=== PATIENT | female | born 1950 | race Caucasian/White ===

== ENCOUNTER 2019-07-02 11:20 | Outpatient (RCR) | payer MEDICARE, MEDICAID, SELFPAY ==
[2019-07-02 11:47] LABS: Basophils % 0.3 %; Eosinophils # 0.4 10^3/uL (0.0-0.8); Eosinophils % 5.1 %; Hematocrit 36.3 % (37.0-47.0); Hemoglobin 11.8 g/dL (11.5-15.3); Lymphocytes # 2.1 10^3/uL (0.8-4.8); Lymphocytes % 28.6 %; Mean Corpuscular HGB Conc 32.5 g/dL (30.0-36.0); Mean Corpuscular Hemoglobin 29.8 pg (28.0-34.0); Mean Corpuscular Volume 91.7 fL (81-99); Mean Platelet Volume 10.3 fL (7.4-10.4); Monocytes # 0.4 10^3/uL (0.2-0.9); Monocytes % 5.6 %; Neutrophils # 4.4 10^3/uL (1.8-7.7); Neutrophils % 60.3 %; Nucleated Red Blood Cells % 0 %; Platelet Count 209 10^3/cmm (130-400); Red Blood Count 3.96 10^6/uL (4.1-5.3); Red Cell Distribution Width 12.7 % (12.1-15.1); White Blood Count 7.3 10^3/uL (4.0-10.0)
[2019-07-02 11:56] LABS: Anion Gap 14.8 (5-19); Blood Urea Nitrogen 27 mg/dL (8-23); Calcium 9.8 mg/Dl (8.8-10.2); Carbon Dioxide 28 mmol/L (22-29); Chloride 96 mmol/L (98-107); Glomerular Filtration Rate 55.1 mL/min (90-130); Glucose 98 mg/dL (74-106); Potassium 4.8 mmol/L (3.5-5.1); Sodium 134 mmol/L (136-145)
== END 2019-07-24 23:59 | disposition home or self-care (01) ==
LOC: LAB 11:20
PROVIDERS: Family Provider Family Medicine; PCP Family Medicine; Visit Provider Internal Medicine
DX: D64.9 Anemia, unspecified (principal); I31.1 Chronic constrictive pericarditis; I10 Essential (primary) hypertension
CPT/HCPCS: 80048; 85025

== ENCOUNTER 2021-01-03 07:26 | Outpatient (CLI) | payer MEDICARE, MEDICAID, SELFPAY ==
[2021-01-03 08:23] LABS: Anion Gap 14.8 (5-19); Blood Urea Nitrogen 23 mg/dL (8-23); Calcium 9.4 mg/dL (8.5-10.5); Carbon Dioxide 28 mmol/L (22-29); Chloride 93 mmol/L (98-107); Glomerular Filtration Rate 49.1 mL/min (90-130); Glucose 99 mg/dL (65-115); Osmolality Calculated 276 mOsm/kg (285-295); Potassium 4.8 mmol/L (3.5-5.1); Sodium 131 mmol/L (136-145)
== END 2021-01-03 07:27 | disposition home or self-care (01) ==
LOC: LAB 07:28
PROVIDERS: PCP Family Medicine; Visit Provider Nurse Practitioner Family
DX: I10 Essential (primary) hypertension (principal)
CPT/HCPCS: 80048

== ENCOUNTER 2021-11-08 20:01 | Emergency (ER) | payer MEDICARE, MEDICAID, SELFPAY ==
[2021-11-08] VITALS (10 sets, daily range): BP systolic 120–167; BP diastolic 66–95; PULSE 68–90; RESP 15–23; TEMP 36.9; O2SAT 89–99
--- NOTE | 2021-11-08 20:16 | W.ED.CHESTPA ---
Documented by User: Emigdio Back 11/08/21 23:22 HPI - Chest Pain General: Chief Complaint: Chest Pain Stated Complaint: CP Time Seen by Provider: 11/08/21 20:02 History of Present Illness: 71-year-old female presents from a long term chief complaint of reported chest pain prior to arrival patient apparently is nonverbal however she made mention to staff that she was having some chest discomfort. Patient has no known history of any underlying cardiac issues she presents to the emergency department via EMS for further assessment and management Associated symptoms: Deny abdominal pain, dyspnea, fever(s), nausea, palpitations or vomiting Review of Systems General: Reports: 10 or more systems reviewed and unremarkable except in HPI and below Const: Denies: fever(s), chills, fatigue or malaise Eyes: Denies: change in vision or blurry vision Card: Reports: chest pain; Denies: palpitations Resp: Denies: dyspnea or productive cough GI: Denies: abdominal pain, nausea or vomiting : Denies: flank pain Musc: Denies: extremity pain or extremity swelling Skin/Breast: Denies: rash or pruritus Neuro: Denies: headache(s) Psych: Denies: anxiety or depression Levon/Lymph: Denies: easy bleeding All/Imm: Denies: urticaria, throat swelling or facial swelling Physical Exam Const: COMMON NORMALS: no acute distress and healthy appearing; negative for patient oriented x3 (Alert oriented x2 no focal neurodeficits appreciated appears to be at basel) HENMT: COMMON NORMALS: normocephalic and atraumatic HEAD & SCALP: normocephalic and atraumatic Eye: COMMON NORMALS: Equal, round and reactive pupils present and EOMs intact bilaterally PUPIL: Yes Equal, round and reactive pupils present Neck/C-Spine: COMMON NORMALS: full ROM, supple and no JVD Lymph: LYMPHATIC: no lymphadenopathy noted Chest: COMMONS NORMALS: normal inspection of the chest and normal palpation of entire chest wall Resp: COMMON NORMALS: normal respiratory effort, No retractions and clear to auscultation bilaterally EFFORT & INSPECTION: Yes able to speak in complete sentences and Yes symmetric chest movement AUSCULTATION: clear to auscultation bilaterally Cardio: COMMON NORMALS: no JVD, regular rate and regular rhythm RATE: regular rate RHYTHM: regular rhythm GI: COMMON NORMALS: Normal to inspection, nondistended, normoactive bowel sounds present, Soft to palpation and non-tender INSPECTION: Yes normal to inspection PALPATION: Yes Soft to palpation : COMMON NORMALS: Yes no CVA tenderness BLADDER/KIDNEY EXAM: Yes no CVA tenderness Back/Pelvis: COMMON NORMALS: no CVA tenderness Extremity: COMMON NORMALS: normal to inspection and full ROM Neuro: COMMON NORMALS: CN's II-XII intact bilaterally, moves all extremities and no focal motor deficits; negative for patient oriented x3 (Alert oriented x2 no focal neurodeficits appreciated appears to be at basel) Psych: COMMON NORMALS: mental status grossly normal, Normal thought process present, cooperative and normal affect THOUGHT PROCESS: Normal thought process present Skin: COMMON NORMALS: no rashes or lesions noted GENERAL SKIN EXAM: no rashes or lesions noted Course Vital Signs: Vital signs: Vital Signs Temperature 98.5 F 11/08/21 20:02 Pulse Rate 68 11/08/21 23:43 Respiratory Rate 16 11/08/21 23:43 Blood Pressure 154/89 11/08/21 23:43 Pulse Oximetry 99 11/08/21 23:43 MDM - Chest Pain Medical Decision Making Due to reported history prior to arrival basic lab work imaging will be obtained we will continue to follow patient appears asymptomatic at this time reported no current complaints. Lab Data : 11/08/21 21:10 11/08/21 21:10 Radiology Impressions Chest X-Ray 11/08/21 20:20 IMPRESSION: 1. Bibasilar atelectasis. 2. Cardiomegaly. Laboratory Results WBC 7.1 10^3/uL (4.0-10.0) 11/08/21 21:10 RBC 3.71 10^6/uL (4.1-5.3) L 11/08/21 21:10 Hgb 10.8 g/dL (11.5-15.3) L 11/08/21 21:10 Hct 32.3 % (37.0-47.0) L 11/08/21 21:10 MCV 87.1 fl (81-99) 11/08/21 21:10 MCH 29.1 pg (28.0-34.0) 11/08/21 21:10 MCHC 33.4 g/dL (30.0-36.0) 11/08/21 21:10 RDW 13.3 % (12.1-15.1) 11/08/21 21:10 Plt Count 172 10^3/cmm (130-400) 11/08/21 21:10 MPV 10.3 fL (7.4-10.4) 11/08/21 21:10 Neut % (Auto) 62.9 % 11/08/21 21:10 Lymph % (Auto) 27.3 % 11/08/21 21:10 Storey % (Auto) 7.3 % 11/08/21 21:10 Eos % (Auto) 2.0 % 11/08/21 21:10 Baso % (Auto) 0.4 % 11/08/21 21:10 Neut # (Auto) 4.46 10^3/uL (1.8-7.7) 11/08/21 21:10 Lymph # (Auto) 1.9 10^3/uL (0.8-4.8) 11/08/21 21:10 [place] # (Auto) 0.5 10^3/uL (0.2-0.9) 11/08/21 21:10 Eos # (Auto) 0.1 10^3/uL (0.0-0.8) 11/08/21 21:10 Baso # (Auto) 0.0 10^3/uL (0.0-0.1) 11/08/21 21:10 Nucleated RBC % (auto) 0 % 11/08/21 21:10 Nucleated RBCs # 0.0 /100WBC 11/08/21 21:10 Sodium 129 mmol/L (136-145) L 11/08/21 21:10 Potassium 4.2 mmol/L (3.5-5.1) 11/08/21 21:10 Chloride 96 mmol/L (98-107) L 11/08/21 21:10 Carbon Dioxide 25 mmol/L (22-29) 11/08/21 21:10 Anion Gap 12.2 (5-19) 11/08/21 21:10 BUN 28 mg/dL (8-23) H 11/08/21 21:10 Creatinine 1.0 mg/dL (0.5-0.9) H 11/08/21 21:10 GFR Calculation Not Reportable 11/08/21 21:10 Glucose 116 mg/dL (65-115) H 11/08/21 21:10 Calculated Osmolality 274 mOsm/kg (285-295) L 11/08/21 21:10 Calcium 8.2 mg/dL (8.5-10.5) L 11/08/21 21:10 Total Bilirubin 0.2 mg/dL (0.15-1.2) 11/08/21 21:10 AST 9 U/L (0-32) 11/08/21 21:10 ALT 10 U/L (0-33) 11/08/21 21:10 Alkaline Phosphatase 85 IU/L (35-105) 11/08/21 21:10 Troponin T Baseline 12 ng/L (0-10) H 11/08/21 21:10 Troponin T 120 Minute 12.25 ng/L (0-10) H 11/08/21 22:50 Delta Troponin T 0.25 ABS# (0-10) 11/08/21 22:50 NT-Pro-B Natriuret Pep 96 pg/mL (0-125) 11/08/21 21:10 Total Protein 6.1 g/dL (6.6-8.7) L 11/08/21 21:10 Albumin 3.6 g/dL (3.5-5.2) 11/08/21 21:10 Globulin 2.5 g/dL (1.3-4.6) 11/08/21 21:10 Discharge Plan Discharge Patient Disposition: Home Clinical Impression: Chest pain, Atypical chest pain Condition: Stable Discharge Orders: Discharge ED (Routine); Ordered 11/08/21 Ordered By: Emigdio Back Referrals: Emanuel Shaffer MD [Primary Care Provider] - 4-7 days Discharge Diet: Advance as tolerated Discharge Activity: Resume usual activity Activity Restrictions/Additional Instructions: Please follow-up with your primary care doctor in 3 to 5 days, please return the interim if any of your symptoms persist or worsen Coding Level of Care Code ED Anesthesiology Physician Assistant for Chg Fwd Exam Comprehensive
--- NOTE | 2021-11-08 20:20 | XRR_ITS ---
PROCEDURE INFORMATION: Exam: XR Chest Exam date and time: 11/08/2021 8:46 PM Age: 71 years old Clinical indication: Chest wall pain; Additional info: Chest pain TECHNIQUE: Imaging protocol: XR of the chest. Views: 1 view. COMPARISON: CR Chest 1 [place] [id number] 07/30/2018 8:45 PM FINDINGS: Lungs: Bibasilar atelectasis. Pleural spaces: Unremarkable. No pleural effusion. No pneumothorax. Heart/Mediastinum: Cardiomegaly. Bones/joints: Unremarkable. XR/XR chest 1V portable [id number] IMPRESSION: 1. Bibasilar atelectasis. 2. Cardiomegaly.
--- NOTE | 2021-11-08 20:20 | ECG_ITS ---
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 Measurements Intervals [place] Rate: 99 P: 74 MN: 172 QRS: 105 QRSD: 89 T: 54 QT: 322 QTc: 415 Interpretive Statements SINUS RHYTHM RIGHT AXIS DEVIATION [QRS AXIS > 100] LOW QRS VOLTAGE IN PRECORDIAL LEADS [QRS DEFLECTION < 1.0 mV IN CHEST LEADS] Compared to ECG 07/31/2018 00:01:24 Right-axis deviation now present Low QRS voltage now present Electronically Signed On 11-09-2021 7:49:51 CDT by Tammy Rojas M.D. [id number]
[2021-11-08] MEDS: sodium chloride 0.9% 500 ML 999 ML IV (20:35)
[2021-11-08] MEDS: nitroglycerin 0.4 mg sublingual Tablet SUBLINGUAL (20:35)
[2021-11-08 21:18] LABS: Basophils % 0.4 %; Eosinophils # 0.1 10^3/uL (0.0-0.8); Hematocrit 32.3 % (37.0-47.0); Hemoglobin 10.8 g/dL (11.5-15.3); Lymphocytes # 1.9 10^3/uL (0.8-4.8); Lymphocytes % 27.3 %; Mean Corpuscular HGB Conc 33.4 g/dL (30.0-36.0); Mean Corpuscular Hemoglobin 29.1 pg (28.0-34.0); Mean Corpuscular Volume 87.1 fl (81-99); Mean Platelet Volume 10.3 fL (7.4-10.4); Monocytes # 0.5 10^3/uL (0.2-0.9); Monocytes % 7.3 %; Neutrophils # 4.46 10^3/uL (1.8-7.7); Neutrophils % 62.9 %; Nucleated Red Blood Cells % 0 %; Platelet Count 172 10^3/cmm (130-400); Red Blood Count 3.71 10^6/uL (4.1-5.3); Red Cell Distribution Width 13.3 % (12.1-15.1); White Blood Count 7.1 10^3/uL (4.0-10.0)
[2021-11-08 21:44] LABS: Alanine Aminotransferase 10 U/L (0-33); Albumin Level 3.6 g/dL (3.5-5.2); Alkaline Phosphatase 85 IU/L (35-105); Aspartate Amino Transferase 9 U/L (0-32); Blood Urea Nitrogen 28 mg/dL (8-23); Calcium 8.2 mg/dL (8.5-10.5); Carbon Dioxide 25 mmol/L (22-29); Chloride 96 mmol/L (98-107); Globulin 2.5 g/dL (1.3-4.6); Glucose 116 mg/dL (65-115); Osmolality Calculated 274 mOsm/kg (285-295); Sodium 129 mmol/L (136-145); Total Bilirubin 0.2 mg/dL (0.15-1.2); Total Protein 6.1 g/dL (6.6-8.7)
[2021-11-08 21:45] LABS: Anion Gap 12.2 (5-19); Potassium 4.2 mmol/L (3.5-5.1)
[2021-11-08 21:48] LABS: NT Pro B Type Natriuretic Pept 96 pg/mL (0-125)
[2021-11-08 22:01] LABS: Troponin(5th) Baseline 12 ng/L (0-10)
[2021-11-08 23:18] LABS: Troponin 5 2HR 12.25 ng/L (0-10)
[2021-11-08 23:22] LABS: Troponin 5 2HR Delta 0.25 ABS# (0-10)
== END 2021-11-08 23:36 | disposition home or self-care (01) ==
PROVIDERS: Emergency Provider Emergency Medicine; PCP Family Medicine
DX: R07.89 Other chest pain (principal)
CPT/HCPCS: 71045; 80053; 83880; 84484; 85025; 93005; 99285; J7040

== ENCOUNTER 2022-06-07 08:20 | Emergency (ER) | payer MEDICARE, MEDICAID, SELFPAY ==
[2022-06-07 08:25] VITALS: BP 190/77; PULSE 95; RESP 18; O2SAT 97
--- NOTE | 2022-06-07 08:31 | W.ED.ABDPA2 ---
HPI - Abdominal Pain General: Chief Complaint: Abdominal Pain Stated Complaint: RUQ pain Time Seen by Provider: 06/07/22 08:24 Source: EMS Mode of arrival: EMS Limitations: other (Dementia, schizophrenia. Patient unable give any history) History of Present Illness: See nursing assessment. After speaking with EMS, patient reportedly had right upper quadrant abdominal pain after exam by the nurse practitioner this morning. EMS was called to transfer patient to the hospital for evaluation of abdominal pain. EMS stated they could not elicit any abdominal pain for the patient. Patient is unable to give any history due to her advanced dementia and schizophrenia. Patient appears in no distress. Patient has a past medical history of dementia, schizophrenia and hypertension. Patient does not complain of any other problems at this time. Associated Symptoms: Reports other (Patient not complaining of abdominal pain now); Denies chills, fever(s), nausea and vomiting Review of Systems Const: Denies: fever(s) or chills Eyes: Denies: change in vision ENMT: Denies: throat pain Card: Denies: chest pain or palpitations Resp: Denies: dyspnea or wheezing GI: Reports: other (Patient not complaining of abdominal pain now); Denies: abdominal pain, nausea or vomiting : Denies: flank pain Musc: Denies: neck pain or back pain Skin/Breast: Denies: rash or pruritus Neuro: Denies: headache(s) or numbness in extremities Psych: Denies: anxiety Levon/Lymph: Denies: enlarged lymph nodes PFS ED Supplemental [facility] Information: Past medical history of schizophrenia, dementia, essential hypertension Physical Exam Const: COMMON NORMALS: no acute distress, alert and well nourished GENERAL APPEARANCE: cooperative OTHER: Morbidly obese HENMT: COMMON NORMALS: normocephalic and atraumatic HEAD & SCALP: normocephalic and atraumatic FACE & SINUS: normal facial exam Eye: COMMON NORMALS: EOMs intact bilaterally Neck/C-Spine: COMMON NORMALS: full ROM, no lymphadenopathy, supple and no meningeal signs GENERAL: Yes normal visual inspection Lymph: LYMPHATIC: no lymphadenopathy noted Chest: COMMONS NORMALS: normal inspection of the chest and normal palpation of entire chest wall CHEST: No Ecchymosis present and No rash Resp: COMMON NORMALS: normal respiratory effort, No retractions and clear to auscultation bilaterally EFFORT & INSPECTION: No respiratory distress AUSCULTATION: clear to auscultation bilaterally Cardio: COMMON NORMALS: regular rate, regular rhythm and Peripheral pulses 2+ throughout JUGULAR VENOUS DISTENTION: no JVD RATE: regular rate RHYTHM: regular rhythm PERIPHERAL PULSES: Peripheral pulses 2+ throughout GI: COMMON NORMALS: Normal to inspection, nondistended, normoactive bowel sounds present and non-tender OTHER: No guarding or rebound. No pain even with deep palpation. Negative Epps sign. No pain over McBurney's point. : COMMON NORMALS: Yes no CVA tenderness BLADDER/KIDNEY EXAM: Yes no CVA tenderness Back/Pelvis: COMMON NORMALS: no CVA tenderness Extremity: COMMON NORMALS: normal to inspection, full ROM and capillary refill normal Neuro: COMMON NORMALS: CN's II-XII intact bilaterally, no focal motor deficits and no sensory deficits noted SENSORIUM/ORIENTATION: Yes alert MENINGEAL SIGNS: Yes no meningeal signs OTHER: Patient has unintelligible speech, but speech is clear.. Patient awake alert and appears no distress. Psych: COMMON NORMALS: cooperative and normal affect Skin: COMMON NORMALS: no rashes or lesions noted and no wounds GENERAL SKIN EXAM: no rashes or lesions noted Course Vital Signs: Vital signs: Vital Signs Pulse Rate 95 06/07/22 08:25 Respiratory Rate 18 06/07/22 08:25 Blood Pressure 190/77 06/07/22 08:25 Pulse Oximetry 97 06/07/22 08:25 Oxygen Delivery Me thod 06/07/22 08:25 MDM - Abdominal Pain Medical Decision Making Abdominal pain by history. Normal physical exam except for advanced dementia and schizophrenia history mild hyponatremia likely due to home meds Lab Data 06/07/22 08:55 06/07/22 08:55 Labs/Radiology: Radiology Impressions Abdomen X-Ray 06/07/22 08:37 IMPRESSION: 1. Mild abdominal colonic constipation. 2. Interval cholecystectomy. Laboratory Results WBC 7.8 10^3/uL (4.0-10.0) 06/07/22 08:55 RBC 4.26 10^6/uL (4.1-5.3) 06/07/22 08:55 Hgb 12.6 g/dL (11.5-15.3) 06/07/22 08:55 Hct 37.9 % (37.0-47.0) 06/07/22 08:55 MCV 89.0 fl (81-99) 06/07/22 08:55 MCH 29.6 pg (28.0-34.0) 06/07/22 08:55 MCHC 33.2 g/dL (30.0-36.0) 06/07/22 08:55 RDW 13.0 % (12.1-15.1) 06/07/22 08:55 Plt Count 221 10^3/cmm (130-400) 06/07/22 08:55 MPV 9.6 fL (7.4-10.4) 06/07/22 08:55 Neut % (Auto) 72.3 % 06/07/22 08:55 Lymph % (Auto) 19.8 % 06/07/22 08:55 [place] % (Auto) 6.3 % 06/07/22 08:55 Eos % (Auto) 0.9 % 06/07/22 08:55 Baso % (Auto) 0.4 % 06/07/22 08:55 Neut # (Auto) 5.63 10^3/uL (1.8-7.7) 06/07/22 08:55 Lymph # (Auto) 1.5 10^3/uL (0.8-4.8) 06/07/22 08:55 [place] # (Auto) 0.5 10^3/uL (0.2-0.9) 06/07/22 08:55 Eos # (Auto) 0.1 10^3/uL (0.0-0.8) 06/07/22 08:55 Baso # (Auto) 0.0 10^3/uL (0.0-0.1) 06/07/22 08:55 Nucleated RBC % (auto) 0 % 06/07/22 08:55 Nucleated RBCs # 0.0 /100WBC 06/07/22 08:55 Sodium 126 mmol/L (136-145) L 06/07/22 08:55 Potassium 4.3 mmol/L (3.5-5.1) 06/07/22 08:55 Chloride 89 mmol/L (98-107) L 06/07/22 08:55 Carbon Dioxide 29 mmol/L (22-29) 06/07/22 08:55 Anion Gap 12.3 (5-19) 06/07/22 08:55 BUN 16 mg/dL (8-23) 06/07/22 08:55 Creatinine 1.0 mg/dL (0.5-0.9) H 06/07/22 08:55 GFR Calculation Not Reportable 06/07/22 08:55 Glucose 81 mg/dL (65-115) 06/07/22 08:55 Calculated Osmolality 262 mOsm/kg (285-295) L 06/07/22 08:55 Calcium 9.5 mg/dL (8.5-10.5) 06/07/22 08:55 Total Bilirubin 0.3 mg/dL (0.15-1.2) 06/07/22 08:55 AST 11 U/L (0-32) 06/07/22 08:55 ALT 11 U/L (0-33) 06/07/22 08:55 Alkaline Phosphatase 98 U/L (35-105) 06/07/22 08:55 Total Protein 6.8 g/dL (6.6-8.7) 06/07/22 08:55 Albumin 3.9 g/dL (3.5-5.2) 06/07/22 08:55 Globulin 2.9 g/dL (1.3-4.6) 06/07/22 08:55 Lipase 66 U/L (13-60) H 06/07/22 08:55 Urine Color Yellow (Yellow) 06/07/22 08:39 Urine Appearance Cloudy (CLEAR) A 06/07/22 08:39 Urine pH 7 (5-7) 06/07/22 08:39 Ur Specific [place] 1.005 (1.005-1.030) 06/07/22 08:39 Urine Protein 1+ (Negative) H 06/07/22 08:39 Urine Glucose (UA) Norm (Normal) 06/07/22 08:39 Urine Ketones Negative (Negative) 06/07/22 08:39 Urine Blood 2+ (Negative) H 06/07/22 08:39 Urine Nitrate Positive (Negative) H 06/07/22 08:39 Urine Bilirubin Neg (Negative) 06/07/22 08:39 Urine Urobilinogen Norm mg/dL (Negative) 06/07/22 08:39 Ur Leukocyte Esterase 2+ (Negative) H 06/07/22 08:39 Urine RBC 0-4 /hpf (0-2) H 06/07/22 08:39 Urine WBC Too numerous to cnt /hpf (0-5) H 06/07/22 08:39 Ur Squamous Epith Cells 0-4 /hpf (0-5) H 06/07/22 08:39 Amorphous Sediment Not Reportable 06/07/22 08:39 Urine Bacteria 3+ /hpf (NONE) H 06/07/22 08:39 Imaging Data KUB: My impression: Moderate stool throughout the colon consistent with constipation but no obstruction or free air. Discharge Plan Discharge Patient Disposition: Home Clinical Impression: Hyponatremia, Essential hypertension Urinary tract infection Qualifiers: Urinary tract infection type: site unspecified Hematuria presence: without hematuria Qualified Code(s): N39.0 - Urinary tract infection, site not specified Condition: Stable Prescriptions: New Bactrim DS 800-160 mg tablet 1 tab PO BID 7 Days Qty: 14 0RF Discharge Orders: Discharge ED (Routine); Ordered 06/07/22 Ordered By: Travis Belcher Referrals: Emanuel Shaffer MD [Primary Care Provider] - Discharge Diet: Regular Discharge Activity: Resume usual activity Patient Instructions: Urinary Tract Infection in Women (DC), Hyponatremia (ED), Opioid Safety, Pain Management Activity Restrictions/Additional Instructions: Drink plenty fluids. Start Bactrim antibiotic and approximately 16 hours Coding Level of Care Code ED Security Investigator for Chg Fwd History Comprehensive Exam Comprehensive Medical Decision Making Moderate Complexity
--- NOTE | 2022-06-07 08:37 | XRR_ITS ---
PROCEDURE INFORMATION: Exam: XR Abdomen Exam date and time: 06/07/2022 8:42 AM Age: 71 years old Clinical indication: Abdominal pain; Localized; Right upper quadrant (ruq) TECHNIQUE: Imaging protocol: Radiologic exam of the abdomen. Views: Frontal supine view of the abdomen. 1 View. COMPARISON: MR MRCP [id number] 07/31/2018 2:43 AM FINDINGS: Gastrointestinal tract: There is increased stool noted in the transverse colon. No evidence of mechanical bowel obstruction. Low attenuation residual bowel contrast is present in the rectum. Organs: The gallbladder is likely surgically absent, with metallic clips overlying the gallbladder fossa. Bones/joints: Bilateral lower lumbar facet primary osteoarthritis. Lower lumbar spine degenerative disc disease. XR/XR abdomen 1V* [id number] IMPRESSION: 1. Mild abdominal colonic constipation. 2. Interval cholecystectomy.
[2022-06-07] MEDS: hyDRALAzine 20 mg/mL INJ 1 mL 5 MG IVP (08:59)
[2022-06-07 09:05] LABS: Add Urine Culture? Yes; Bacteria Urine 3+ /hpf; Bilirubin Urine Neg (Negative); Blood Urine 2+ (Negative); Glucose Urine UA Norm (Normal); Ketones Urine Negative (Negative); Leukocyte Esterase Urine 2+ (Negative); Nitrate Urine Positive (Negative); Protein Urine 1+ (Negative); RBC Urine 0-4 /hpf (0-2); Specific Gravity, Urine 1.005 (1.005-1.030); Squamous Epithelial Cell Urine 0-4 /hpf (0-5); Urine Appearance Cloudy (CLEAR); Urine Color Yellow (Yellow); Urobilinogen Urine Norm (Negative); WBC Urine TOO NUMEROUS TO CNT /hpf (0-5); pH Urine 7 (5-7)
[2022-06-07 09:08] LABS: Basophils % 0.4 %; Eosinophils # 0.1 10^3/uL (0.0-0.8); Eosinophils % 0.9 %; Hematocrit 37.9 % (37.0-47.0); Hemoglobin 12.6 g/dL (11.5-15.3); Lymphocytes # 1.5 10^3/uL (0.8-4.8); Lymphocytes % 19.8 %; Mean Corpuscular HGB Conc 33.2 g/dL (30.0-36.0); Mean Corpuscular Hemoglobin 29.6 pg (28.0-34.0); Mean Platelet Volume 9.6 fL (7.4-10.4); Monocytes # 0.5 10^3/uL (0.2-0.9); Monocytes % 6.3 %; Neutrophils # 5.63 10^3/uL (1.8-7.7); Neutrophils % 72.3 %; Nucleated Red Blood Cells % 0 %; Platelet Count 221 10^3/cmm (130-400); Red Blood Count 4.26 10^6/uL (4.1-5.3); White Blood Count 7.8 10^3/uL (4.0-10.0)
[2022-06-07 09:30] LABS: Alanine Aminotransferase 11 U/L (0-33); Albumin Level 3.9 g/dL (3.5-5.2); Alkaline Phosphatase 98 U/L (35-105); Aspartate Amino Transferase 11 U/L (0-32); Blood Urea Nitrogen 16 mg/dL (8-23); Calcium 9.5 mg/dL (8.5-10.5); Carbon Dioxide 29 mmol/L (22-29); Chloride 89 mmol/L (98-107); Globulin 2.9 g/dL (1.3-4.6); Glucose 81 mg/dL (65-115); Lipase 66 U/L (13-60); Osmolality Calculated 262 mOsm/kg (285-295); Sodium 126 mmol/L (136-145); Total Bilirubin 0.3 mg/dL (0.15-1.2); Total Protein 6.8 g/dL (6.6-8.7)
[2022-06-07 09:31] LABS: Anion Gap 12.3 (5-19); Potassium 4.3 mmol/L (3.5-5.1)
[2022-06-07] MEDS: cefTRIAXone 1,000 MG in sodium chloride 0.9% (plus) 50 ML 100 MG IV (09:33)
== END 2022-06-07 10:45 | disposition home or self-care (01) ==
PROVIDERS: Emergency Provider Family Medicine; PCP Family Medicine
DX: N39.0 Urinary tract infection, site not specified (principal); I10 Essential (primary) hypertension; E87.1 Hypo-osmolality and hyponatremia
CPT/HCPCS: 74018; 80053; 81001; 83690; 85025; 87086; 96374; 96375; 99284; J0360; J0696

== ENCOUNTER 2023-10-26 15:25 | Inpatient (IN) | payer MEDICARE, MEDICAID, SELFPAY ==
[2023-10-26] VITALS (20 sets, daily range): BP systolic 97–143; BP diastolic 42–92; PULSE 60–102; RESP 15–79; TEMP 33.1–34.3; O2SAT 71–100
--- NOTE | 2023-10-26 15:29 | XRR_ITS ---
PROCEDURE INFORMATION: Exam: XR Chest Exam date and time: 10/26/2023 3:34 PM Age: 73 years old Clinical indication: Cough and dyspnea; Additional info: Dyspnea/cough TECHNIQUE: Imaging protocol: Radiologic exam of the chest. Views: 1 view. COMPARISON: CR XR chest 1V portable [id number] 11/08/2021 8:46 PM FINDINGS: Lungs: Shallow inspiration. Mild crowding and atelectasis in the right lung base. Consolidation in the left lung base along with soft tissue attenuation. Pleural spaces: Possible small pleural effusions. No pneumothorax. Heart/Mediastinum: Unremarkable. No cardiomegaly. Diaphragm: Stable elevation of the right diaphragm. Bones/joints: Unremarkable. XR/XR chest 1V portable [id number] IMPRESSION: 1. Consolidation in the left lung base may in part represent soft tissue attenuation. Pneumonia or aspiration is not excluded.
--- NOTE | 2023-10-26 15:29 | CTR_ITS ---
PROCEDURE INFORMATION: Exam: CT Head Without Contrast Exam date and time: 10/26/2023 3:45 PM Age: 73 years old Clinical indication: Altered mental status/memory loss; Additional info: AMS TECHNIQUE: Imaging protocol: Computed tomography of the head without contrast. Radiation optimization: All CT scans at this facility use at least one of these dose optimization techniques: automated exposure control; mA and/or kV adjustment per patient size (includes targeted exams where dose is matched to clinical indication); or iterative reconstruction. COMPARISON: CT head wo con* [id number] 06/25/2018 10:08 PM RADIATION DOSE METRICS: Total DLP (mGy-cm): 948.13 FINDINGS: Brain: Mild cortical volume loss. Mild hypodensities in supratentorial periventricular and subcortical white matter, consistent with microangiopathy. No intracranial hemorrhage. Cerebral ventricles: No ventriculomegaly. Paranasal sinuses: Air-fluid level in the right maxillary sinus. Mucosal thickening in the maxillary sinuses. Mastoid air cells: Left mastoid effusion the right mastoid is clear. Bones: Unremarkable. No acute fracture. Soft tissues: Unremarkable. Vasculature: No hyperdense artery. CT/CT head wo con* [id number] IMPRESSION: 1. No acute intracranial abnormality. 2. Maxillary sinusitis.
--- NOTE | 2023-10-26 15:57 | ECG_ITS ---
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 Measurements Intervals [place] Rate: 60 P: 78 GA: 225 QRS: 95 QRSD: 123 T: 13 QT: 397 QTc: 397 Interpretive Statements SINUS RHYTHM WITH FIRST DEGREE AV BLOCK BORDERLINE RIGHT AXIS DEVIATION [QRS AXIS > 90] MODERATE INTRAVENTRICULAR CONDUCTION DELAY [105+ ms QRS DURATION, 80+ ms Q/S IN V1/V2, NO Q AND 60+ ms R IN I/aVL/V5/V6] Non specific ST T wave changes Compared to prior echocardiogram 11/08/2021 20:06:54 First degree AV block now present Intraventricular conduction delay now present ST (T wave) deviation now present Myocardial infarct finding now present Electronically Signed On 10-27-2023 12:12:47 CDT by Philippe Hernandez M.D. [id number]
--- NOTE | 2023-10-26 15:59 | ED_ITS ---
HPI - Altered Mental Status 2 General: Chief Complaint: Altered Mental Status Stated Complaint: AMS Time Seen by Provider: 10/26/23 15:26 Source: family and other Mode of arrival: EMS History of Present Illness: 73-year-old female presents emergency ro om via EMS from the [facility]. According to nursing report vomiting called to she is usually nonverbal but is able to ambulate some. She has been generally deteriorating last couple of months and this morning when she got up she was not able to walk at all and did not attempt to eat. This is unusual for her. She has been in the [facility] since 2019. No known complaints of chest pain no reported fever. She has a little bit tachypneic on arrival he is a family of the patient can give us any usable history. complaint: altered mental status and confusion Review of Systems 2 General: Reports: ROS unobtainable due to mental status PFSH ED 2 PFSH: Medical History (Updated 10/26/23 @ 18:01 by Rhett Davalos DO) Dementia Physical Exam 2 Const: ORIENTATION/CONSCIOUSNESS: Yes awake HENMT: COMMON NORMALS: normocephalic, atraumatic and hearing grossly normal bilaterally HEAD & SCALP: normocephalic and atraumatic Resp: EFFORT & INSPECTION: Yes tachypneic AUSCULTATION: rhonchi and wheezes Cardio: COMMON NORMALS: regular rate, regular rhythm and No murmurs present (Cardio) RATE: regular rate RHYTHM: regular rhythm GI: COMMON NORMALS: Soft to palpation and No hepatosplenomegaly present A USCULTATION: Yes normoactive bowel sounds PALPATION: Yes Soft to palpation, No Tenderness to palpation present (GI), No Guarding due to palpation present (GI) and Yes No hepatosplenomegaly present Extremity: COMMON NORMALS: normal to inspection, capillary refill normal, no clubbing, cyanosis or edema, no calf tenderness and no pedal edema Skin: COMMON NORMALS: no rashes or lesions noted GENERAL SKIN EXAM: no rashes or lesions noted Course 2 Vital Signs: Vital signs: Vital Signs Pulse Rate 68 10/26/23 17:34 Respiratory Rate 20 H 10/26/23 17:34 Blood Pressure 109/91 10/26/23 16:04 Pulse Oximetry 96 10/26/23 17:34 Oxygen Delivery Me thod Nasal Cannula 10/26/23 17:34 Oxygen Flow Rate 2 10/26/23 17:34 MDM - Altered Mental Status Medical Decision Making Altered mental status with a new pneumonia new oxygen requirement as well. Additionally acute renal failure with hyperkalemia of 7.7 she has been given all the usual interventions for the hyperkalemia with the exception of Kayexalate he did not feel that it is appropriate for her to try to ingest anything at this point and she is still active enough a Kayexalate enema is not an option. Urine is still pending. She is also mildly hyponatremic. Discussed with the hospitalist orders written nephrology consulted Medical Records I reviewed the patient's medical records. Lab Data I reviewed the patient's lab results. 10/26/23 16:03 10/26/23 16:03 Radiology Impressions Chest X-Ray 10/26/23 15:29 IMPRESSION: 1. Consolidation in the left lung base may in part represent soft tissue attenuation. Pneumonia or aspiration is not excluded. Head CT 10/26/23 15:29 IMPRESSION: 1. No acute intracranial abnormality. 2. Maxillary sinusitis. Laboratory Results WBC 6.35 10^3/uL (3.29-11.43) 10/26/23 16:03 RBC 3.78 10^6/uL (3.85-5.65) L 10/26/23 16:03 Hgb 10.40 g/dL (11.27-16.99) L 10/26/23 16:03 Hct 32.8 % (36-47) L 10/26/23 16:03 MCV 86.8 fl (85-98) 10/26/23 16:03 MCH 27.5 pg (27-33) 10/26/23 16:03 MCHC 31.7 g/dL (30-55) 10/26/23 16:03 RDW 18.5 % (12.1-15.1) H 10/26/23 16:03 Plt Count 162 10^3/cmm (157-399) 10/26/23 16:03 MPV 9.1 fL (7.4-10.4) 10/26/23 16:03 Neut % (Auto) 84.9 % 10/26/23 16:03 Lymph % (Auto) 8.3 % 10/26/23 16:03 [place] % (Auto) 6.1 % 10/26/23 16:03 Eos % (Auto) 0.3 % 10/26/23 16:03 Baso % (Auto) 0.2 % 10/26/23 16:03 Neut # (Auto) 5.39 10^3/uL (1.8-7.7) 10/26/23 16:03 Lymph # (Auto) 0.5 10^3/uL (0.8-4.8) L 10/26/23 16:03 [place] # (Auto) 0.4 10^3/uL (0.2-0.9) 10/26/23 16:03 Eos # (Auto) 0.0 10^3/uL (0.0-0.8) 10/26/23 16:03 Baso # (Auto) 0.0 10^3/uL (0.0-0.1) 10/26/23 16:03 Nucleated RBC % (auto) 0 % 10/26/23 16:03 Nucleated RBCs # 0.0 /100WBC 10/26/23 16:03 Sodium 126 mmol/L (136-145) L 10/26/23 16:03 Potassium 7.7 mmol/L (3.5-5.1) H* 10/26/23 16:03 Chloride 96 mmol/L (98-107) L 10/26/23 16:03 Carbon Dioxide 16 mmol/L (22-29) L 10/26/23 16:03 Anion Gap 21.7 (5-19) H 10/26/23 16:03 BUN 141 mg/dL (8-23) H* D 10/26/23 16:03 Creatinine 3.1 mg/dL (0.5-0.9) H 10/26/23 16:03 GFR Calculation Not Reportable 10/26/23 16:03 Glucose 118 mg/dL (65-115) H 10/26/23 16:03 Calculated Osmolality 309 mOsm/kg (285-295) H 10/26/23 16:03 Lactic Acid 0.6 mmol/L (0.5-2.2) 10/26/23 16:03 Calcium 8.7 mg/dL (8.5-10.5) 10/26/23 16:03 Total Bilirubin 0.2 mg/dL (0.15-1.2) 10/26/23 16:03 AST 14 U/L (0-32) 10/26/23 16:03 ALT 26 U/L (0-33) 10/26/23 16:03 Alkaline Phosphatase 107 U/L (35-105) H 10/26/23 16:03 Creatine Kinase 61 U/L (26-192) 10/26/23 16:03 Troponin T Baseline 35 ng/L (0-10) H 10/26/23 16:03 NT-Pro-B Natriuret Pep 638 pg/mL (0-125) H 10/26/23 16:03 Total Protein 7.4 g/dL (6.6-8.7) 10/26/23 16:03 Albumin 3.5 g/dL (3.5-5.2) 10/26/23 16:03 Globulin 3.9 g/dL (1.3-4.6) 10/26/23 16:03 Lipase 103 U/L (13-60) H 10/26/23 16:03 Procalcitonin 0.36 ng/mL (0-0.5) 10/26/23 16:03 All radiology interpretation(s) finalized by discharge Discharge Plan Discharge Patient Disposition: Admitted As Inpatient Admit Provider: Juan Pina Clinical Impression: Hyperkalemia, Altered mental status, Hyponatremia, Aspiration pneumonia, Acute renal failure Condition: Stable Coding Level of Care Code ED 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
[2023-10-26 16:08] LABS: Basophils % 0.2 %; Eosinophils % 0.3 %; Hematocrit 32.8 % (36-47); Lymphocytes # 0.5 10^3/uL (0.8-4.8); Lymphocytes % 8.3 %; Mean Corpuscular HGB Conc 31.7 g/dL (30-55); Mean Corpuscular Hemoglobin 27.5 pg (27-33); Mean Corpuscular Volume 86.8 fl (85-98); Mean Platelet Volume 9.1 fL (7.4-10.4); Monocytes # 0.4 10^3/uL (0.2-0.9); Monocytes % 6.1 %; Neutrophils # 5.39 10^3/uL (1.8-7.7); Neutrophils % 84.9 %; Nucleated Red Blood Cells % 0 %; Platelet Count 162 10^3/cmm (157-399); Red Blood Count 3.78 10^6/uL (3.85-5.65); Red Cell Distribution Width 18.5 % (12.1-15.1); White Blood Count 6.35 10^3/uL (3.29-11.43)
[2023-10-26 16:25] LABS: Lactic Sepsis W/Reflex 0.6 mmol/L (0.5-2.2)
[2023-10-26 16:32] LABS: Troponin(5th) Baseline 35 ng/L (0-10)
[2023-10-26 16:38] LABS: NT Pro B Type Natriuretic Pept 638 pg/mL (0-125); Procalcitonin 0.36 ng/mL (0-0.5)
[2023-10-26 16:50] LABS: Alanine Aminotransferase 26 U/L (0-33); Albumin Level 3.5 g/dL (3.5-5.2); Alkaline Phosphatase 107 U/L (35-105); Anion Gap 21.7 (5-19); Aspartate Amino Transferase 14 U/L (0-32); Calcium 8.7 mg/dL (8.5-10.5); Carbon Dioxide 16 mmol/L (22-29); Chloride 96 mmol/L (98-107); Creatine Phosphokinase 61 U/L (26-192); Globulin 3.9 g/dL (1.3-4.6); Glucose 118 mg/dL (65-115); Lipase 103 U/L (13-60); Sodium 126 mmol/L (136-145); Total Bilirubin 0.2 mg/dL (0.15-1.2); Total Protein 7.4 g/dL (6.6-8.7)
[2023-10-26 17:06] LABS: Osmolality Calculated 309 mOsm/kg (285-295)
[2023-10-26 17:07] LABS: Blood Urea Nitrogen 141 mg/dL (8-23); Potassium 7.7 mmol/L (3.5-5.1)
[2023-10-26] MEDS: dextrose 10% 250 ML 1000 ML IV (17:26)
[2023-10-26] MEDS: calcium chloride 10% Syr 10 mL 2 GM IVP (17:28)
--- NOTE | 2023-10-26 17:30 | PC.NURSE ---
Medication Delay: 10units of insulin ordered at 1708 delayed d/t glucose of 118. Infusing 10% Dextrose prior to insulin administration.
[2023-10-26] MEDS: sodium chloride 0.9% 1,000 ML 999 ML IV (17:31)
[2023-10-26] MEDS: albuterol 2.5 mg/3 mL Neb 10 MG INHALATION (17:32)
[2023-10-26] MEDS: insulin regular-human 100 units/1 mL 10 UNIT IVP (17:55)
[2023-10-26] MEDS: meropenem 1,000 MG in sodium chloride 0.9% (plus) 50 ML 100 MG IV (17:55)
[2023-10-26] MEDS: sodium bicarbonate 150 MEQ in dextrose 5% 250 ML 500 MEQ IV (17:55)
[2023-10-26 18:03] LABS: Adenovirus Not Detected (NOT DETECT); Chlamydia Pneumoniae Not Detected (NOT DETECT); Coronavirus 229E,HKU1,NL63,OC4 Not Detected (NOT DETECT); Human Metapneumovirus Not Detected (NOT DETECT); Human Rhinovirus/Enterovirus Not Detected (NOT DETECT); Influenza A Not Detected (NOT DETECT); Influenza A H1 Not Detected (NOT DETECT); Influenza A H1-2009 Not Detected (NOT DETECT); Influenza A H3 Not Detected (NOT DETECT); Influenza B Not Detected (NOT DETECT); Mycoplasma Pneumoniae Not Detected (NOT DETECT); Parainfluenza Virus Type 1 Not Detected (NOT DETECT); Parainfluenza Virus Type 2 Not Detected (NOT DETECT); Parainfluenza Virus Type 3 Not Detected (NOT DETECT); Parainfluenza Virus Type 4 Not Detected (NOT DETECT); Respiratory Syncytial Virus A Not Detected (NOT DETECT); Respiratory Syncytial Virus B Not Detected (NOT DETECT); SARS-COV-2 Not Detected (NOT DETECT)
[2023-10-26 18:14] LABS: Troponin 5 2HR 28.32 ng/L (0-10)
[2023-10-26 18:15] LABS: Troponin 5 2HR Delta -6.68 ABS# (0-10)
[2023-10-26 18:15] LABS: Magnesium 3.1 mg/dL (1.7-2.3)
--- NOTE | 2023-10-26 18:18 | PC.NURSE ---
pt update: per family pt normally is ambulatory to bathroom, only wears depends for accidents. pt has had stool and urinary incontinence episode since arrival. pt rectal temp 91.5. Dr. Davalos notified. Mirza Santa applied to patient. pt does not wear oxygen baseline. pt currently on 2L NC with oxygen saturation of 97%
--- NOTE | 2023-10-26 18:55 | PM.HP ---
Providers/Chief Complaint Admitting Physician: Juan Pina MD Primary Care Provider: Emanuel Shaffer MD Chief Complaint: AMS History of Present Illness Tammi Poole is a 73 year old female resident of [place], full code, presented to the hospital for refusing to eat and not been able to get out of the bed. At baseline she is not very active requires walker for ambulation assisted feeding much today change that prompted her visit to the ER. In the ER she was diagnosed with hyperkalemia. Patient was in metabolic encephalopathy state secondary to pneumonia. Nephrology was consulted for hyperkalemia she was given hyperkalemia treatment cocktail. Patient not able to provide any history most of the information has been taken with the collaterals, [facility] reviewed, Spoke with the manufacturing coordinator and the ER physician As per the [facility] patient is nonverbal, she would only use 1-2 words to what her needs known, can use a walker to go to the bathroom, otherwise not functionally very active, She would not remember any information from day-to-day visit She gets hallucinations as well Review of Systems General: Reports: ROS unobtainable due to medical condition Medications/Allergies Home Medications Medication Instructions Recorded Confirmed Last Taken Type acetaminophen 325 mg tablet 325 mg PO QID PRN pain/fever 10/27/23 10/27/23 10/26/23 09:56 History furosemide 40 mg tablet 40 mg PO BID 10/27/23 10/27/23 10/26/23 13:00 History lisinopril 10 mg tablet 10 mg PO DAILY 10/27/23 10/27/23 10/26/23 07:00 History pantoprazole 40 mg tablet,delayed 40 mg PO DAILY 10/27/23 10/27/23 10/26/23 07:00 History release (Protonix) polyethylene glycol 3350 17 gram 17 g PO DAILY 10/27/23 10/27/23 10/26/23 07:00 History oral powder packet risperidone 0.5 mg tablet 0.5 mg PO 08,18 10/27/23 10/27/23 10/26/23 08:00 History (Risperdal) risperidone 1 mg tablet (Risperdal) 1 mg PO 1400 10/27/23 10/27/23 10/26/23 14:00 History tamsulosin 0.4 mg capsule 0.4 mg PO DAILY 10/27/23 10/27/23 10/25/23 17:00 History Allergies Allergy/AdvReac Type Severity Reaction Status Date / Time Penicillins Allergy Unknown Verified 11/08/21 20:31 quetiapine [From Seroquel] Allergy Unknown Verified 11/08/21 20:31 PFSH Acute PFSH: Medical History Pressure ulcer HTN (hypertension) Dementia Vitals/I&O/Wt Last Vital Signs Temp 91.5 F L 10/26/23 18:16 Pulse 80 10/26/23 17:45 Resp 79 H 10/26/23 18:00 BP 109/91 10/26/23 16:04 Pulse Ox 93 10/26/23 18:00 O2 Del Method Nasal Cannula 10/26/23 18:00 O2 Flow Rate 2 10/26/23 18:00 10/26/23 10/26/23 10/26/23 06:59 14:59 22:59 Intake Total 250 / 250 Balance 250 / 250 Weight last 48 hrs Weight 136.078 kg Physical Exam Narrative: Morbid obese female Has Mirza liu's Hemodynamically stable Oriented to herself Not able to provide any history She will look at her face makes eye contact but would not talk She was snoring with her eyes open when I entered the room She made eye contact but would not answer any questions She has lower extremities venous's dermatitis with pressure ulcers Lower extremity are wrapped with a dressing Distended abdomen nontender Currently she is on room air Oriented to herself neuroexam is limited Urinary Catheter Management: Donald: Cath Placed During This Visit: yes Reason for Continuing Indwelling Catheter: Accurate Measurement of Urinary Output in Critically Ill Patients Urinary Catheter Date of Insertion: 10/26/23 Urinary Catheter Time of Insertion: 18:20 Data 10/28/23 07:23 10/28/23 06:04 Micro: Microbiology 10/26/23 16:09 Blood Culture - Preliminary Blood SPECIMEN COLLECTED 10/26/23 17:47 Blood Culture - Preliminary Blood SPECIMEN COLLECTED A&P Assessment and plan (1) Hyponatremia: (2) Hyperkalemia: (3) Acute renal failure: (4) Altered mental status: (5) Dementia: (6) Aspiration pneumonia: Plan Acute renal failure Potassium 7.7 Uremia Nephrology consulted Patient received hyperkalemia treatment cocktail Stat repeat BMP Metabolic encephalopathy related to pneumonia Start vancomycin and aztreonam Patient is not requiring oxygen She is able to protect airways Metabolic acidosis start bicarb drip Pressure ulcer with venous's dermatitis Will use calcium as of late daily dressing change after application of topical disinfectant Full code as per the pen[facility]iary records Admit to ICU Full code N.p.o. until she is able to follow commands Dementia with acute delirium related above-mentioned etiologies Attestations Medical Necessity Statement*: More than 2 midnights anticipated Diagnoses Hyponatremia E87.1 Hyperkalemia E87.5 Acute renal failure N17.9 Altered mental status R41.82 Dementia F03.90 Aspiration pneumonia J69.0
[2023-10-26 18:59] LABS: Add Urine Microscopic? YES; Amorphous Sediment Urine TRACE /hpf; Bacteria Urine 2+ /hpf; Bilirubin Urine 1+ (Negative); Blood Urine Neg (Negative); Glucose Urine UA Norm (Normal); Ketones Urine Negative (Negative); Leukocyte Esterase Urine 1+ (Negative); Nitrate Urine Negative (Negative); Protein Urine Neg (Negative); RBC Urine 0-4 /hpf (0-2); Squamous Epithelial Cell Urine 0-4 /hpf (0-5); Urine Appearance Clear (CLEAR); Urine Color Yellow (Yellow); Urobilinogen Urine Neg (Negative); pH Urine 5 (5-7)
[2023-10-26 19:00] LABS: Add Urine Culture? Yes; Coarse Granular Casts Urine 0-4 /lpf
--- NOTE | 2023-10-26 19:01 | PM.CONSULT ---
Providers/Reason For Consult Consulting Physician/Specialty*: [facility]/NEPHROLOGY Reason for Consult*: GRAY Attending Physician: Juan Pina MD Primary Care Provider: Emanuel Shaffer MD History of Present Illness History of Present Illness Tammi Poole is a 73 year old female Patient is a 73-year-old female who is a resident of [facility] with a past medical history of hypertension advanced dementia was sent to the hospital as patient was refusing to eat and refusing to get out of bed. Patient not able to provide much history at this time in the ER patient was found to have severe GRAY with severe uremia along with severe hyperkalemia with a potassium more than 7. Also thought to have pneumonia. Patient was admitted to the ICU. Review of Systems Narrative: cannot obtain full ROS Medications/Allergies Home Medications Medication Instructions Recorded Confirmed Last Taken Type acetaminophen 325 mg tablet 325 mg PO QID PRN pain/fever 10/27/23 10/27/23 10/26/23 09:56 History furosemide 40 mg tablet 40 mg PO BID 10/27/23 10/27/23 10/26/23 13:00 History lisinopril 10 mg tablet 10 mg PO DAILY 10/27/23 10/27/23 10/26/23 07:00 History pantoprazole 40 mg tablet,delayed 40 mg PO DAILY 10/27/23 10/27/23 10/26/23 07:00 History release (Protonix) polyethylene glycol 3350 17 gram 17 g PO DAILY 10/27/23 10/27/23 10/26/23 07:00 History oral powder packet risperidone 0.5 mg tablet 0.5 mg PO 08,18 10/27/23 10/27/23 10/26/23 08:00 History (Risperdal) risperidone 1 mg tablet (Risperdal) 1 mg PO 1400 10/27/23 10/27/23 10/26/23 14:00 History tamsulosin 0.4 mg capsule 0.4 mg PO DAILY 10/27/23 10/27/23 10/25/23 17:00 History Allergies Allergy/AdvReac Type Severity Reaction Status Date / Time Penicillins Allergy Unknown Verified 11/08/21 20:31 quetiapine [From Seroquel] Allergy Unknown Verified 11/08/21 20:31 Current Medications Generic Name Dose Route Start Last Admin Trade Name Freq PRN Reason Stop Dose Admin Dextrose 250 mls @ 1,000 mls/hr 10/26/23 17:08 10/26/23 17:55 D10w IV Infused PRN PRN Infusion HYPOGLYCEMIA PFSH Acute PFSH: Medical History Pressure ulcer HTN (hypertension) Dementia Vitals/I&O/Wt Last Vital Signs Temp 91.5 F L 10/26/23 18:16 Pulse 80 10/26/23 17:45 Resp 79 H 10/26/23 18:00 BP 109/91 10/26/23 16:04 Pulse Ox 93 10/26/23 18:00 O2 Del Method Nasal Cannula 10/26/23 18:00 O2 Flow Rate 2 10/26/23 18:00 10/26/23 10/26/23 10/26/23 06:59 14:59 22:59 Intake Total 250 / 250 Balance 250 / 250 Weight last 48 hrs Weight 136.078 kg Physical Exam Narrative: AWAKE , ALERT NO DISTRESS Urinary Catheter Management: Donald: Cath Placed During This Visit: yes Reason for Continuing Indwelling Catheter: Accurate Measurement of Urinary Output in Critically Ill Patients Urinary Catheter Date of Insertion: 10/26/23 Urinary Catheter Time of Insertion: 18:20 Data 10/27/23 07:30 10/27/23 07:30 Micro: Microbiology 10/26/23 16:09 Blood Culture - Preliminary Blood SPECIMEN COLLECTED 10/26/23 17:47 Blood Culture - Preliminary Blood SPECIMEN COLLECTED A&P Assessment and plan (1) Hyperkalemia: (2) Acute renal failure: Plan 1. GRAY : associated with Hyperkalemia and severe uremia. Patient unable to provide much history. GRAY likely prerenal. No recent baseline creatinine available. Placed on bicarbonate drip and continue to monitor. Urine output picked up. Avoid contrast studies Need goals of care discussion 2. Severe hyperkalemia: Status post medical management and placed on bicarb drip, monitor follow-up next BMP 3. Metabolic acidosis 4. Advanced dementia 5. Possible sepsis/pneumonia Consult Attestations Medical Necessity Statement: per medicine Coding Level of Care Code Acute Code for [facility] Diagnoses Hyperkalemia E87.5 Acute renal failure N17.9
--- NOTE | 2023-10-26 20:15 | ECG_ITS ---
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 Measurements Intervals [place] Rate: 75 P: 86 CA: 190 QRS: 98 QRSD: 111 T: 21 QT: 350 QTc: 392 Interpretive Statements SINUS RHYTHM BORDERLINE RIGHT AXIS DEVIATION [QRS AXIS > 90] LOW QRS VOLTAGE IN PRECORDIAL LEADS [QRS DEFLECTION < 1.0 mV IN CHEST LEADS] MODERATE INTRAVENTRICULAR CONDUCTION DELAY [110+ ms QRS DURATION] Compared to ECG 10/26/2023 15:38:23 Low QRS voltage now present First degree AV block no longer present ST (T wave) deviation no longer present Myocardial infarct finding no longer present Electronically Signed On 10-27-2023 12:41:00 CDT by Philippe Hernandez M.D. [id number]
[2023-10-26 20:20] LABS: Calcium 9.3 mg/dL (8.5-10.5); Carbon Dioxide 15 mmol/L (22-29); Chloride 102 mmol/L (98-107); Glucose 121 mg/dL (65-115); Sodium 130 mmol/L (136-145)
[2023-10-26 20:26] LABS: Osmolality Calculated 314 mOsm/kg (285-295)
[2023-10-26 20:28] LABS: Blood Urea Nitrogen 131 mg/dL (8-23)
[2023-10-26 21:11] LABS: Thyroid Stimulating Hormone 3.05 uIU/mL (0.27-4.20)
--- NOTE | 2023-10-26 21:11 | PC.NURSE ---
Report was called to SELAM Singh in ICU. All questions and concerns were addressed at time of report.
[2023-10-26] MEDS: sodium bicarbonate 150 MEQ in dextrose 5% 1,000 ML IV (21:39)
[2023-10-26] MEDS: vancomycin 2,000 MG/400 ML PIGGYBACK 200 MG IV (21:43)
--- NOTE | 2023-10-26 21:57 | ECG_ITS ---
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 Measurements Intervals [place] Rate: 79 P: 73 AR: 212 QRS: 96 QRSD: 116 T: 24 QT: 347 QTc: 399 Interpretive Statements SINUS RHYTHM WITH FIRST DEGREE AV BLOCK BORDERLINE RIGHT AXIS DEVIATION [QRS AXIS > 90] LOW QRS VOLTAGE IN PRECORDIAL LEADS [QRS DEFLECTION < 1.0 mV IN CHEST LEADS] MODERATE INTRAVENTRICULAR CONDUCTION DELAY [110+ ms QRS DURATION] Compared to ECG 10/26/2023 20:15:22 First degree AV block now present Electronically Signed On 10-27-2023 12:40:57 CDT by Philippe Hernandez M.D. [id number]
[2023-10-26] MEDS: sodium polystyrene sulfonate 15 gm/60 mL Btl 30 GM PO (21:58)
[2023-10-27] VITALS (82 sets, daily range): BP systolic 82–135; BP diastolic 29–99; PULSE 78–122; RESP 15–34; TEMP 34.9–37.4; O2SAT 87–100
[2023-10-27 01:25] LABS: Troponin 5 6HR 41.97 ng/L (0-10); Troponin 5 6HR Delta 6.97 ng/L (0-12)
[2023-10-27 01:26] LABS: Anion Gap 18.1 (5-19); Calcium 9.2 mg/dL (8.5-10.5); Carbon Dioxide 23 mmol/L (22-29); Chloride 103 mmol/L (98-107); Creatinine Clr Calc Pharmacy 24.8321; Glucose 127 mg/dL (65-115); Sodium 137 mmol/L (136-145)
[2023-10-27 01:34] LABS: Blood Urea Nitrogen 126 mg/dL (8-23); Osmolality Calculated 326 mOsm/kg (285-295); Potassium 7.1 mmol/L (3.5-5.1)
[2023-10-27] MEDS: dextrose 10% 250 ML 999 ML IV (03:15)
[2023-10-27] MEDS: insulin regular-human 100 units/1 mL 10 UNIT IVP (03:16)
[2023-10-27] MEDS: aztreonam 1,000 MG in sodium chloride 0.9% (plus) 50 ML 100 MG IV ×2 (04:56→17:01)
--- NOTE | 2023-10-27 07:05 | P.PN_ITS ---
Subjective 2 Subjective: As per the overnight nursing staff patient asked for water this morning She is more conversive and able to interact than last night She was able to move her left hand however she uses shoulder muscles to lift her hand She has poor strength in her right arm Morning labs are pending Vitals/I&O/Wt Last Vital Signs Temp 97.9 F 10/27/23 06:30 Pulse 96 10/27/23 06:30 Resp 23 H 10/27/23 06:30 BP 135/66 10/27/23 06:30 Pulse Ox 95 10/27/23 06:30 O2 Del Method Nasal Cannula 10/26/23 21:30 O2 Flow Rate 2 10/26/23 18:00 10/26/23 10/27/23 10/27/23 22:59 06:59 14:59 Intake Total 300 / 300 Output Total 1050 / 1050 1200 / 2250 Balance -750 / -750 -1200 / -1950 Weight last 48 hrs Weight 125.328 kg Weight 125.464 kg Weight 136.078 kg Physical Exam 2 Narrative: Able to move left side of her body, right-sided weakness Able to order a few words which I was able to understand otherwise word salad Lower extremity venous's dermatitis with ulcers Cellulitis without purulence Covered with dressing S1, S2 Hemodynamic stable Currently still has Mirza hugger's Abdomen distended soft Urinary Catheter Management: Donald: Cath Placed During This Visit: yes Reason for Continuing Indwelling Catheter: Accurate Measurement of Urinary Output in Critically Ill Patients Urinary Catheter Date of Insertion: 10/26/23 Urinary Catheter Time of Insertion: 18:20 Data 10/28/23 07:23 10/28/23 06:04 Micro: Microbiology 10/26/23 16:09 Blood Culture - Preliminary Blood SPECIMEN COLLECTED 10/26/23 17:47 Blood Culture - Preliminary Blood SPECIMEN COLLECTED A&P Assessment and plan (1) Hyponatremia: (2) Acute renal failure: (3) Hyperkalemia: (4) Altered mental status: (5) Dementia: (6) Aspiration pneumonia: Plan Acute renal failure Potassium improved slightly Will follow-up with nephrology BMP is pending Most likely will discontinue bicarb IV Metabolic encephalopathy related to pneumonia Continue antibiotics Word salad noted, right-sided weakness Concern for subacute CVA Patient at baseline has poor functional status I will put her on pur?ed diet Patient seems to have dementia, currently has acute delirium related to pneumonia Pressure ulcers, venous dermatitis, wound dressing on daily basis Attestations 2 Medical Necessity Statement*: Continue medical management Diagnoses Hyponatremia E87.1 Acute renal failure N17.9 Hyperkalemia E87.5 Altered mental status R41.82 Dementia F03.90 Aspiration pneumonia J69.0
[2023-10-27 08:01] LABS: Basophils % 0.6 %; Eosinophils # 0.2 10^3/uL (0.0-0.8); Eosinophils % 2.3 %; Hematocrit 43.8 % (36-47); Lymphocytes # 1.7 10^3/uL (0.8-4.8); Lymphocytes % 26.1 %; Mean Corpuscular HGB Conc 32.4 g/dL (30-55); Mean Corpuscular Hemoglobin 31.8 pg (27-33); Mean Corpuscular Volume 98.2 fl (85-98); Monocytes # 0.5 10^3/uL (0.2-0.9); Monocytes % 8.1 %; Neutrophils % 62.6 %; Nucleated Red Blood Cells % 0 %; Platelet Count 145 10^3/cmm (157-399); Red Blood Count 4.46 10^6/uL (3.85-5.65)
[2023-10-27 08:25] LABS: Anion Gap 18.4 (5-19); C Reactive Protein 61.8 mg/L (0.0-4.9); Calcium 8.9 mg/dL (8.5-10.5); Carbon Dioxide 23 mmol/L (22-29); Chloride 100 mmol/L (98-107); Glucose 65 mg/dL (65-115); Magnesium 2.5 mg/dL (1.7-2.3); Osmolality Calculated 313 mOsm/kg (285-295); Phosphorus 5.9 mg/dL (2.5-4.5); Potassium 6.4 mmol/L (3.5-5.1); Sodium 135 mmol/L (136-145)
[2023-10-27] MEDS: pantoprazole 40 mg SDV IVP ×2 (09:05→17:01)
[2023-10-27 09:18] LABS: Glucose Point of Care 78 mg/dL (70-110)
[2023-10-27] MEDS: sodium chloride 0.9% 1,000 ML 100 ML IV ×2 (09:19→18:38)
[2023-10-27 09:46] LABS: Blood Urea Nitrogen 109 mg/dL (8-23); Creatinine Clr Calc Pharmacy 26.8836
--- NOTE | 2023-10-27 09:50 | P.PN_ITS ---
Subjective 2 Subjective: on 2l NC Medications: Reviewed: Yes Vitals/I&O/Wt Last Vital Signs Temp 97.9 F 10/27/23 06:30 Pulse 98 10/27/23 09:19 Resp 18 10/27/23 09:19 BP 135/66 10/27/23 06:30 Pulse Ox 92 10/27/23 09:19 O2 Del Method Room Air 10/27/23 09:19 O2 Flow Rate 2 10/26/23 18:00 10/26/23 10/27/23 10/27/23 22:59 06:59 14:59 Intake Total 300 / 300 222 / 222 Output Total 1050 / 1050 1200 / 2250 Balance -750 / -750 -1200 / -1950 222 / 222 Weight last 48 hrs Weight 125.328 kg Weight 125.464 kg Weight 136.078 kg Physical Exam 2 Narrative: AWAKE , ALERT NO DISTRESS Urinary Catheter Management: Donald: Cath Placed During This Visit: yes Reason for Continuing Indwelling Catheter: Accurate Measurement of Urinary Output in Critically Ill Patients Urinary Catheter Date of Insertion: 10/26/23 Urinary Catheter Time of Insertion: 18:20 Data 10/27/23 07:30 10/27/23 07:30 Micro: Microbiology 10/26/23 16:09 Blood Culture - Preliminary Blood SPECIMEN COLLECTED 10/26/23 17:47 Blood Culture - Preliminary Blood SPECIMEN COLLECTED A&P Assessment and plan (1) Hyperkalemia: (2) Acute renal failure: Plan 1. GRAY : associated with Hyperkalemia and severe uremia. Patient unable to provide much history. GRAY likely prerenal. No recent baseline creatinine available. Placed on bicarbonate drip--> switch to NS . Urine output picked up. Avoid contrast studies Need goals of care discussion 2. Severe hyperkalemia: Status post medical management, monitor, follow-up next BMP 3. Metabolic acidosis 4. Advanced dementia 5. Possible sepsis/pneumonia Attestations 2 Medical Necessity Statement*: per [place] Coding Level of Care Code Acute Code for [facility] F[facility] Diagnoses Hyperkalemia E87.5 Acute renal failure N17.9
--- NOTE | 2023-10-27 09:58 | PC.NURSE ---
Spoke with Dr. Fiore on morning lab results, telephone order rbv for NS at 100mls/hr, and draw BMP at 1600, as well as a low potassium diet order.
[2023-10-27] MEDS: sodium polystyrene sulfonate 15 gm/60 mL Btl PO (14:42)
[2023-10-27] MEDS: nystatin powder 15 gm Btl 1 APPLIC TOPICAL (17:01)
[2023-10-27 19:57] LABS: Anion Gap 14.9 (5-19); Calcium 8.1 mg/dL (8.5-10.5); Carbon Dioxide 26 mmol/L (22-29); Chloride 105 mmol/L (98-107); Creatinine Clr Calc Pharmacy 26.8836; Glucose 82 mg/dL (65-115); Osmolality Calculated 322 mOsm/kg (285-295); Potassium 5.9 mmol/L (3.5-5.1); Sodium 140 mmol/L (136-145)
[2023-10-27 19:58] LABS: Blood Urea Nitrogen 104 mg/dL (8-23)
[2023-10-27] MEDS: ipratropium-albuterol 3 mL Neb INHALATION (21:01)
[2023-10-28] VITALS (9 sets, daily range): BP systolic 94–138; BP diastolic 45–88; PULSE 55–104; RESP 18–20; TEMP 36.4–37.2; O2SAT 95–99; BMI 49.2
[2023-10-28] MEDS: aztreonam 1,000 MG in sodium chloride 0.9% (plus) 50 ML 100 MG IV ×2 (05:37→17:06)
[2023-10-28 07:32] LABS: Basophils % 0.3 %; Eosinophils % 0.8 %; Hematocrit 28.4 % (36-47); Lymphocytes # 0.8 10^3/uL (0.8-4.8); Lymphocytes % 21.2 %; Mean Corpuscular Hemoglobin 27.9 pg (27-33); Mean Corpuscular Volume 87.1 fl (85-98); Mean Platelet Volume 9.1 fL (7.4-10.4); Monocytes # 0.5 10^3/uL (0.2-0.9); Monocytes % 12.7 %; Neutrophils % 64.7 %; Nucleated Red Blood Cells % 0 %; Platelet Count 155 10^3/cmm (157-399); Red Blood Count 3.26 10^6/uL (3.85-5.65); Red Cell Distribution Width 19.2 % (12.1-15.1); White Blood Count 3.86 10^3/uL (3.29-11.43)
[2023-10-28 07:52] LABS: Calcium 8.3 mg/dL (8.5-10.5); Carbon Dioxide 16 mmol/L (22-29); Chloride 107 mmol/L (98-107); Creatinine Clr Calc Pharmacy 32.3822; Glucose 61 mg/dL (65-115); Osmolality Calculated 314 mOsm/kg (285-295); Sodium 138 mmol/L (136-145)
[2023-10-28 07:56] LABS: Blood Urea Nitrogen 96 mg/dL (8-23)
[2023-10-28 07:57] LABS: Anion Gap 20.5 (5-19); Potassium 5.5 mmol/L (3.5-5.1)
[2023-10-28] MEDS: sodium chloride 0.9% 1,000 ML 100 ML IV ×2 (07:57→17:08)
[2023-10-28] MEDS: pantoprazole 40 mg SDV IVP ×2 (07:58→17:07)
[2023-10-28] MEDS: sennosides-docusate Tablet 1 TAB PO (07:59)
[2023-10-28] MEDS: nystatin powder 15 gm Btl 1 APPLIC TOPICAL ×2 (08:08→17:07)
--- NOTE | 2023-10-28 09:49 | P.PN_ITS ---
Subjective 2 Subjective: events noted Medications: Reviewed: Yes Vitals/I&O/Wt Last Vital Signs Temp 99.0 F 10/28/23 08:00 Pulse 90 10/28/23 09:27 Resp 18 10/28/23 09:27 BP 129/59 10/28/23 08:00 Pulse Ox 97 10/28/23 09:27 O2 Del Method Nasal Cannula 10/28/23 09:27 O2 Flow Rate 2 10/28/23 09:27 10/27/23 10/28/23 10/28/23 22:59 06:59 14:59 Intake Total 1081.667 / 4102.213 7826 / 2453.667 290 / 290 Output Total 1425 / 1425 550 / 1975 Balance -343.333 / 28.667 450 / 478.667 290 / 290 Weight last 48 hrs Weight 126.099 kg Weight 125.328 kg Weight 125.464 kg Weight 136.078 kg Physical Exam 2 Narrative: AWAKE , ALERT NO DISTRESS Urinary Catheter Management: Donald: Cath Placed During This Visit: yes Reason for Continuing Indwelling Catheter: Accurate Measurement of Urinary Output in Critically Ill Patients Urinary Catheter Date of Insertion: 10/26/23 Urinary Catheter Time of Insertion: 18:20 Data 10/28/23 07:23 10/28/23 06:04 Micro: Microbiology 10/26/23 16:09 Blood Culture - Preliminary Blood NEGATIVE TO DATE 10/26/23 17:47 Blood Culture - Preliminary Blood NEGATIVE TO DATE A&P Assessment and plan (1) Hyperkalemia: (2) Acute renal failure: Plan 1. GRAY : associated with Hyperkalemia and severe uremia. Patient unable to provide much history. GRAY likely prerenal. No recent baseline creatinine available. Placed on bicarbonate drip--> switch to NS . Urine output picked up. Avoid contrast studies renal fxn better 2. Severe hyperkalemia: Status post medical management, monitor, improved 3. Metabolic acidosis 4. Advanced dementia 5. Possible sepsis/pneumonia Attestations 2 Medical Necessity Statement*: per [place] Coding Level of Care Code Acute Code for [facility]wd Diagnoses Hyperkalemia E87.5 Acute renal failure N17.9
--- NOTE | 2023-10-28 13:22 | P.PN_ITS ---
Subjective 2 Subjective: Patient this morning is able to make eye contact does not talk much Will request PT Can transfer out of ICU Hyperkalemia improved Acidosis improved Hemodynamic stable Vitals/I&O/Wt Last Vital Signs Temp 99.0 F 10/28/23 08:00 Pulse 90 10/28/23 09:27 Resp 18 10/28/23 09:27 BP 129/59 10/28/23 08:00 Pulse Ox 97 10/28/23 09:27 O2 Del Method Nasal Cannula 10/28/23 09:27 O2 Flow Rate 2 10/28/23 09:27 10/27/23 10/28/23 10/28/23 22:59 06:59 14:59 Intake Total 1081.667 / 5025.850 9276 / 2453.667 990 / 990 Output Total 1425 / 1425 550 / 1975 Balance -343.333 / 28.667 450 / 478.667 990 / 990 Weight last 48 hrs Weight 126.099 kg Weight 125.328 kg Weight 125.464 kg Weight 136.078 kg Physical Exam 2 Narrative: Patient is oriented to herself Makes eye contact, does not talk much She is not able to move her right arm without any assistance She was able to lift her left hand when asked her to shake my hand Not able to follow commands to lift her leg She has dressing on her legs bilaterally Venous's dermatitis with nonpurulent cellulitis S1, S2 Currently on 2 L Hemodynamic stable Urinary Catheter Management: Donald: Cath Placed During This Visit: yes Reason for Continuing Indwelling Catheter: Accurate Measurement of Urinary Output in Critically Ill Patients Urinary Catheter Date of Insertion: 10/26/23 Urinary Catheter Time of Insertion: 18:20 Data 10/28/23 07:23 10/28/23 06:04 Micro: Microbiology 10/26/23 18:14 Urine Culture - Final Urine,Clean Catch 10/26/23 16:09 Blood Culture - Preliminary Blood NEGATIVE TO DATE 10/26/23 17:47 Blood Culture - Preliminary Blood NEGATIVE TO DATE A&P Assessment and plan (1) Hyponatremia: (2) Acute renal failure: (3) Hyperkalemia: (4) Altered mental status: (5) Dementia: (6) Aspiration pneumonia: (7) Right sided weakness: Plan Metabolic encephalopathy related to pneumonia Right-sided weakness CT head unremarkable Last known well time is unknown at the time of evaluation in the ER She was not a tPA candidate Hyperkalemia improved She is not a candidate to go for CTA chest because of creatinine Acute on chronic kidney disease: Improving Hyperkalemia: Improved Appreciate nephro recommendations Full code Has history of schizophrenia and dementia Gets hallucinations as well Transfer out of ICU to [facility] Request PT Disposition: Back to [place] likely by tomorrow Attestations 2 Medical Necessity Statement*: Discharge tomorrow Diagnoses Hyponatremia E87.1 Acute renal failure N17.9 Hyperkalemia E87.5 Altered mental status R41.82 Dementia F03.90 Aspiration pneumonia J69.0 Right sided weakness R53.1
--- NOTE | 2023-10-28 15:06 | PC.OT ---
OT EVALUATION ATTEMPTED; PATIENT DOES NOT AWAKEN TO VOICE OR TOUCH. WILL ATTEMPT AGAIN TOMORROW.
[2023-10-28] MEDS: vancomycin 2,000 MG/400 ML PIGGYBACK 200 MG IV (21:30)
[2023-10-29 04:00] VITALS: BP 104/54; PULSE 63; RESP 18; TEMP 36.4; O2SAT 95
[2023-10-29] MEDS: aztreonam 1,000 MG in sodium chloride 0.9% (plus) 50 ML 100 MG IV (05:52)
[2023-10-29] MEDS: sodium chloride 0.9% 1,000 ML 100 ML IV (05:52)
[2023-10-29 08:10] VITALS: BP 147/81; PULSE 73; RESP 19; TEMP 36.1; O2SAT 94
[2023-10-29] MEDS: pantoprazole 40 mg SDV IVP (08:44)
[2023-10-29] MEDS: nystatin powder 15 gm Btl 1 APPLIC TOPICAL (09:08)
[2023-10-29] MEDS: sennosides-docusate Tablet 1 TAB PO (09:08)
--- NOTE | 2023-10-29 09:18 | PM.PN ---
Subjective Subjective: doing better Medications: Reviewed: Yes Vitals/I&O/Wt Last Vital Signs Temp 97.0 F L 10/29/23 08:10 Pulse 73 10/29/23 08:10 Resp 19 H 10/29/23 08:10 BP 147/81 10/29/23 08:10 Pulse Ox 94 10/29/23 08:10 O2 Del Method Nasal Cannula 10/29/23 04:00 O2 Flow Rate 2 10/28/23 09:27 10/28/23 10/29/23 10/29/23 22:59 06:59 14:59 Intake Total 1448.333 / 2438.333 1730 / 4168.333 3250 / 3250 Output Total 1500 / 1500 450 / 1950 Balance -51.667 / 383.460 8119 / 2218.333 3250 / 3250 Weight last 48 hrs Weight 126.297 kg Weight 126.099 kg Physical Exam Narrative: AWAKE , ALERT NO DISTRESS Urinary Catheter Management: Donald: Cath Placed During This Visit: yes Reason for Continuing Indwelling Catheter: Other Urinary Catheter Date of Insertion: 10/26/23 Urinary Catheter Time of Insertion: 18:20 Data 10/28/23 07:23 10/28/23 06:04 Micro: Microbiology 10/26/23 18:14 Urine Culture - Final Urine,Clean Catch A&P Assessment and plan (1) Hyperkalemia: (2) Acute renal failure: Plan 1. GRAY : associated with Hyperkalemia and severe uremia. Patient unable to provide much history. GRAY likely prerenal. No recent baseline creatinine available. Placed on bicarbonate drip--> switch to NS . Urine output picked up. Avoid contrast studies renal fxn better 2. Severe hyperkalemia: Status post medical management, low k diet 3. Metabolic acidosis 4. Advanced dementia 5. Possible sepsis/pneumonia Attestations Medical Necessity Statement*: per medicine Coding Level of Care Code Acute Code for [facility] Fwd Diagnoses Hyperkalemia E87.5 Acute renal failure N17.9
[2023-10-29 09:22] VITALS: PULSE 72; RESP 16; O2SAT 91
[2023-10-29 10:27] LABS: Blood Urea Nitrogen 79 mg/dL (8-23); Calcium 8.4 mg/dL (8.5-10.5); Carbon Dioxide 22 mmol/L (22-29); Chloride 108 mmol/L (98-107); Glucose 68 mg/dL (65-115); Osmolality Calculated 314 mOsm/kg (285-295); Sodium 141 mmol/L (136-145)
[2023-10-29 10:28] LABS: Anion Gap 16.9 (5-19); Potassium 5.9 mmol/L (3.5-5.1)
--- NOTE | 2023-10-29 10:56 | PM.DCS ---
Discharge Providers Date of Admission: 10/26/23 17:14 Date of Discharge: October 29, 2023 Attending Provider at Admission: Juan Pina MD Attending Provider at Discharge: Juan Pina MD Primary Care Provider: Emanuel Shaffer MD Diagnoses at Discharge Discharge Diagnosis (1) Hyperkalemia: Status: Acute (2) Acute renal failure: Status: Acute Reason for Visit Reason for Visit: AMS Hospital Course Hospital Course 73-year-old female who was admitted to the hospital for management evaluation of hyperkalemia, at baseline she has schizophrenia, hallucinations, only speaks 1-2 words, generally considered nonverbal at the fdc, does not have any medical DPOA, full code, uses a walker to ambulate to go to the bathroom presented because she was not willing to get out of her bed and was unresponsive completely. She was admitted to ICU for significant hyperkalemia, her high potassium improved with hyperkalemia cocktail. Nephrology was consulted which managed her conservatively. Dialysis was not considered. Her mentation and hydration status improved with IV fluid hydration, she was diagnosed with pneumonia which caused metabolic encephalopathy, metabolic acidosis improved, bicarb was discontinued. At the time of discharge potassium is below 6, For hypertension added amlodipine on top of metoprolol Lisinopril discontinued She only speaks 1-2 words to make her needs known For her pneumonia we will add levofloxacin 7-day regimen Added lactulose for constipation Before discharge she is able to work with PT to some extent, able to use a walker, able to make her needs known with 1 sentence Stroke was not considered, she does not have any focal deficit Right-sided weakness of her body improved she is able to shake hands on command without any difficulty MRI head discontinue CT head was unremarkable. Physical Exam Narrative: Patient is nonverbal Able to follow commands Able to speak 1-2 sentences Clinical signs of dehydration improving Awake and alert Currently on room air Pleasant Stares at the interviewer but does not communicate very well Urinary Catheter Management: Donald: Cath Placed During This Visit: yes Reason for Continuing Indwelling Catheter: Other Urinary Catheter Date of Insertion: 10/26/23 Urinary Catheter Time of Insertion: 18:20 Discharge Data Studies Completed and Pending Completed Studies During Hospitalization Category Date Time Status CT head wo con* [id number] Stat Cat Scan 10/26/23 15:29 Completed XR chest 1V portable [id number] Stat Exams 10/26/23 15:29 Completed Pending at discharge Category Date Time Status Blood Culture Stat Lab 10/26/23 16:09 Results Potassium Stat Lab 10/29/23 10:52 Ordered Radiology Impressions Chest X-Ray 10/26/23 15:29 IMPRESSION: 1. Consolidation in the left lung base may in part represent soft tissue attenuation. Pneumonia or aspiration is not excluded. Head CT 10/26/23 15:29 IMPRESSION: 1. No acute intracranial abnormality. 2. Maxillary sinusitis. Laboratory Results WBC 3.86 10^3/uL (3.29-11.43) 10/28/23 07:23 RBC 3.26 10^6/uL (3.85-5.65) L 10/28/23 07:23 Hgb 9.10 g/dL (11.27-16.99) L D 10/28/23 07:23 Hct 28.4 % (36-47) L D 10/28/23 07:23 MCV 87.1 fl (85-98) D 10/28/23 07:23 MCH 27.9 pg (27-33) D 10/28/23 07:23 MCHC 32.0 g/dL (30-55) 10/28/23 07:23 RDW 19.2 % (12.1-15.1) H 10/28/23 07:23 Plt Count 155 10^3/cmm (157-399) L 10/28/23 07:23 MPV 9.1 fL (7.4-10.4) 10/28/23 07:23 Neut % (Auto) 64.7 % 10/28/23 07:23 Lymph % (Auto) 21.2 % 10/28/23 07:23 [place] % (Auto) 12.7 % 10/28/23 07:23 Eos % (Auto) 0.8 % 10/28/23 07:23 Baso % (Auto) 0.3 % 10/28/23 07:23 Neut # (Auto) 2.50 10^3/uL (1.8-7.7) 10/28/23 07:23 Lymph # (Auto) 0.8 10^3/uL (0.8-4.8) 10/28/23 07:23 [place] # (Auto) 0.5 10^3/uL (0.2-0.9) 10/28/23 07:23 Eos # (Auto) 0.0 10^3/uL (0.0-0.8) 10/28/23 07:23 Baso # (Auto) 0.0 10^3/uL (0.0-0.1) 10/28/23 07:23 Nucleated RBC % (auto) 0 % 10/28/23 07:23 Nucleated RBCs # 0.0 /100WBC 10/28/23 07:23 Sodium 141 mmol/L (136-145) 10/29/23 06:18 Potassium 5.9 mmol/L (3.5-5.1) H 10/29/23 06:18 Chloride 108 mmol/L (98-107) H 10/29/23 06:18 Carbon Dioxide 22 mmol/L (22-29) 10/29/23 06:18 Anion Gap 16.9 (5-19) 10/29/23 06:18 BUN 79 mg/dL (8-23) H 10/29/23 06:18 Creatinine 1.6 mg/dL (0.5-0.9) H 10/29/23 06:18 GFR Calculation Not Reportable 10/29/23 06:18 Glucose 68 mg/dL (65-115) 10/29/23 06:18 POC Glucose 78 mg/dL (70-110) 10/27/23 09:13 Calculated Osmolality 314 mOsm/kg (285-295) H 10/29/23 06:18 Lactic Acid 0.6 mmol/L (0.5-2.2) 10/26/23 16:03 Calcium 8.4 mg/dL (8.5-10.5) L 10/29/23 06:18 Phosphorus 5.9 mg/dL (2.5-4.5) H 10/27/23 07:30 Magnesium 2.5 mg/dL (1.7-2.3) H 10/27/23 07:30 Total Bilirubin 0.2 mg/dL (0.15-1.2) 10/26/23 16:03 AST 14 U/L (0-32) 10/26/23 16:03 ALT 26 U/L (0-33) 10/26/23 16:03 Alkaline Phosphatase 107 U/L (35-105) H 10/26/23 16:03 Creatine Kinase 61 U/L (26-192) 10/26/23 16:03 Troponin T Baseline 35 ng/L (0-10) H 10/26/23 16:03 Troponin T 120 Minute 28.32 ng/L (0-10) H 10/26/23 17:47 Delta Troponin T -6.68 ABS# (0-10) L 10/26/23 17:47 Troponin T Hi Sens 6Hr 41.97 ng/L (0-10) H 10/27/23 01:00 Troponin T Hi Sens 6Hr Delta 6.97 ng/L (0-12) 10/27/23 01:00 C-Reactive Protein 61.8 mg/L (0.0-4.9) H 10/27/23 07:30 NT-Pro-B Natriuret Pep 638 pg/mL (0-125) H 10/26/23 16:03 Total Protein 7.4 g/dL (6.6-8.7) 10/26/23 16:03 Albumin 3.5 g/dL (3.5-5.2) 10/26/23 16:03 Globulin 3.9 g/dL (1.3-4.6) 10/26/23 16:03 Lipase 103 U/L (13-60) H 10/26/23 16:03 Procalcitonin 0.36 ng/mL (0-0.5) 10/26/23 16:03 TSH 3.05 uIU/mL (0.27-4.20) 10/26/23 18:58 Urine Color Yellow (Yellow) 10/26/23 18:14 Urine Appearance Clear (CLEAR) 10/26/23 18:14 Urine pH 5 (5-7) 10/26/23 18:14 Ur Specific [place] 1.020 (1.005-1.030) 10/26/23 18:14 Urine Protein Neg (Negative) 10/26/23 18:14 Urine Glucose (UA) Norm (Normal) 10/26/23 18:14 Urine Ketones Negative (Negative) 10/26/23 18:14 Urine Blood Neg (Negative) 10/26/23 18:14 Urine Nitrate Negative (Negative) 10/26/23 18:14 Urine Bilirubin 1+ (Negative) H 10/26/23 18:14 Urine Urobilinogen Neg mg/dL (Negative) 10/26/23 18:14 Ur Leukocyte Esterase 1+ (Negative) H 10/26/23 18:14 Urine RBC 0-4 /hpf (0-2) H 10/26/23 18:14 Urine WBC 5-10 /hpf (0-5) H 10/26/23 18:14 Ur Squamous Epith Cells 0-4 /hpf (0-5) H 10/26/23 18:14 Amorphous Sediment Trace /hpf 10/26/23 18:14 Urine Bacteria 2+ /hpf (NONE) H 10/26/23 18:14 Hyaline Casts 5-10 /lpf H 10/26/23 18:14 Coarse Granular Casts 0-4 /lpf H 10/26/23 18:14 Adenovirus (PCR) Not detected (NOT DETECT) 10/26/23 16:07 C. pneumoniae DNA (PCR) Not detected (NOT DETECT) 10/26/23 16:07 Coronavirus 229E (PCR) Not detected (NOT DETECT) 10/26/23 16:07 Human Metapneumovir PCR Not detected (NOT DETECT) 10/26/23 16:07 Influenza A (H1) PCR Not detected (NOT DETECT) 10/26/23 16:07 Influ A (H1/09) PCR Not detected (NOT DETECT) 10/26/23 16:07 Influenza A (H3) PCR Not detected (NOT DETECT) 10/26/23 16:07 Influenza Type A (PCR) Not detected (NOT DETECT) 10/26/23 16:07 Influenza Type B (PCR) Not detected (NOT DETECT) 10/26/23 16:07 M. pneumoniae (PCR) Not detected (NOT DETECT) 10/26/23 16:07 Parainfluenza 1 (PCR) Not detected (NOT DETECT) 10/26/23 16:07 Parainfluenza 2 (PCR) Not detected (NOT DETECT) 10/26/23 16:07 Parainfluenza 3 (PCR) Not detected (NOT DETECT) 10/26/23 16:07 Parainfluenza 4 (PCR) Not detected (NOT DETECT) 10/26/23 16:07 RSV Type A (PCR) Not detected (NOT DETECT) 10/26/23 16:07 RSV Type B (PCR) Not detected (NOT DETECT) 10/26/23 16:07 Entero/Rhino (PCR) Not detected (NOT DETECT) 10/26/23 16:07 SARS-CoV-2 (PCR) Not detected (NOT DETECT) 10/26/23 16:07 Vitals Last Vital Signs Temp 97.0 F L 10/29/23 08:10 Pulse 72 10/29/23 09:22 Resp 16 10/29/23 09:22 BP 147/81 10/29/23 08:10 Pulse Ox 91 10/29/23 09:22 O2 Del Method Room Air 10/29/23 09:22 O2 Flow Rate 2 10/28/23 09:27 Discharge Plan Discharge Patient Disposition: Xfer SNF Condition: Stable Prescriptions: New levofloxacin 750 mg tablet 750 mg PO DAILY 7 Days Qty: 7 0RF amlodipine 10 mg tablet 10 mg PO DAILY Qty: 30 2RF metoprolol tartrate 25 mg tablet 25 mg PO BID Qty: 60 0RF lactulose 10 gram/15 mL solution 10 g PO DAILY PRN (Reason: constipation) Qty: 473 0RF olanzapine [Zyprexa] 5 mg tablet 5 mg PO BEDTIME PRN (Reason: agitation) Qty: 30 0RF metoprolol tartrate 25 mg tablet 25 mg PO BID Qty: 60 0RF olanzapine [Zyprexa] 5 mg tablet 5 mg PO BEDTIME PRN (Reason: agitation) Qty: 30 0RF amlodipine 10 mg tablet 10 mg PO DAILY Qty: 30 2RF lactulose 10 gram/15 mL solution 10 g PO DAILY PRN (Reason: constipation) Qty: 473 0RF levofloxacin 750 mg tablet 750 mg PO DAILY 7 Days Qty: 7 0RF Continued polyethylene glycol 3350 17 gram Powder In Packet 17 g PO DAILY tamsulosin 0.4 mg capsule 0.4 mg PO DAILY Protonix 40 mg Tablet,Delayed Release (Dr/Ec) 40 mg PO DAILY acetaminophen 325 mg Tablet 325 mg PO QID PRN (Reason: pain/fever) Risperdal 0.5 mg Tablet 0.5 mg PO 08,18 Changed furosemide 40 mg Tablet 40 mg PO DAILY Qty: 30 0RF Discontinued lisinopril 10 mg Tablet 10 mg PO DAILY risperidone [Risperdal] 1 mg Tablet 1 mg PO 1400 Discharge Orders: Discharge Order (Routine); Ordered 10/29/23 Ordered By: Juan Pina Referrals: [facility] [Outside] Emanuel Shaffer MD [Primary Care Provider] - Patient Instructions: Altered Mental Status (ED), Opioid Safety Discharge Attestations Time Spent in Discharge Care*: greater than 30 min Quality Metrics Clinical Quality Measures [ No reported AMI, CVA or VTE this stay] Coding Level of Care Code Acute Code for [facility] Fwd Diagnoses Hyperkalemia E87.5 Acute renal failure N17.9
[2023-10-29 11:00] VITALS: BP 143/78; PULSE 56; TEMP 36.6; O2SAT 90
[2023-10-29 12:00] LABS: Potassium 5.2 mmol/L (3.5-5.1)
--- NOTE | 2023-10-29 12:00 | PC.NURSE ---
This nurse called report to Nita at [place]. All questions addressed and answered at this time.
[2023-10-29 14:36] VITALS: BP 143/78; PULSE 56; TEMP 36.6; O2SAT 90
== END 2023-10-29 14:45 | disposition skilled nursing facility (03) | DRG 640 ==
LOC: ER 16:04 → ICU 17:40 → MEDSURG 10-28 14:55
PROVIDERS: Hospitalist; Internal Medicine; Admitting Provider Internal Medicine; Emergency Provider Family Medicine; PCP Family Medicine; Visit Provider Internal Medicine
DX: E87.5 Hyperkalemia (principal); G93.41 Metabolic encephalopathy; J69.0 Pneumonitis due to inhalation of food and vomit; N17.9 Acute kidney failure, unspecified; F03.92 Unspecified dementia, unspecified severity, with psychotic disturbance; I83.209 Varicose veins of unspecified lower extremity with both ulcer of unspecified site and inflammation; L97.919 Non-pressure chronic ulcer of unspecified part of right lower leg with unspecified severity; L97.929 Non-pressure chronic ulcer of unspecified part of left lower leg with unspecified severity; E87.1 Hypo-osmolality and hyponatremia; E87.20 Acidosis, unspecified; I10 Essential (primary) hypertension
CPT/HCPCS: 36415; 36416; 51702; 70450; 71045; 80048; 80053; 81001; 82550; 82962; 83605; 83690; 83735; 83880; 84100; 84132; 84145; 84443; 84484; 85025; 86140; 87040; 87086; 87486; 87581; 87633; 93005; 94640; 96365; 96367; 96374; 96375; 96376; 97161; 97165; 99291; 99292; C9113; J1815; J2185; J3372; J3490; J7030; J7060; J7070; J7613; J7799; Q3014

== ENCOUNTER 2023-11-01 11:52 | Outpatient (RCR) | payer MEDICARE, MEDICAID, SELFPAY | END 2023-11-22 23:59 | disposition home or self-care (01) | LOC: SPT 11:52 | PROVIDERS: PCP Family Medicine; Visit Provider Internal Medicine | DX: I89.0 Lymphedema, not elsewhere classified (principal) | CPT/HCPCS: 97140; 97161 ==

== ENCOUNTER 2023-12-05 01:08 | Emergency (ER) | payer MEDICARE, MEDICAID, SELFPAY ==
[2023-12-05] VITALS (7 sets, daily range): BP systolic 50–130; BP diastolic 20–69; PULSE 24–86; RESP 15–21; TEMP 31.1; O2SAT 91–100; BMI 42.5
--- NOTE | 2023-12-05 01:19 | CTR_ITS ---
PROCEDURE INFORMATION: Exam: CT Head Without Contrast Exam date and time: 12/05/2023 1:10 AM Age: 73 years old Clinical indication: Altered mental status/memory loss; Additional info: AMS TECHNIQUE: Imaging protocol: Computed tomography of the head without contrast. Radiation optimization: All CT scans at this facility use at least one of these dose optimization techniques: automated exposure control; mA and/or kV adjustment per patient size (includes targeted exams where dose is matched to clinical indication); or iterative reconstruction. COMPARISON: CT head wo con* [id number] 10/26/2023 3:45 PM RADIATION DOSE METRICS: Total DLP (mGy-cm): 1097.3 FINDINGS: Brain: Mild cerebral atrophy. Cerebral ventricles: No ventriculomegaly. Paranasal sinuses: Mild bilateral ethmoid sinus disease. Mastoid air cells: Visualized mastoid air cells are well aerated. Bones: Unremarkable. No acute fracture. Soft tissues: Unremarkable. CT/CT head wo con* [id number] IMPRESSION: 1. Mild bilateral ethmoid sinus disease. 2. No acute intracranial findings.
--- NOTE | 2023-12-05 01:19 | XRR_ITS ---
PROCEDURE INFORMATION: Exam: XR Chest Exam date and time: 12/05/2023 1:37 AM Age: 73 years old Clinical indication: Wheezing; Additional info: AMS, wheeze rhonchi TECHNIQUE: Imaging protocol: Radiologic exam of the chest. Views: 1 view. COMPARISON: CR (CHEST, ) 10/26/2023 3:34 PM FINDINGS: Lungs: Unremarkable. No consolidation. Pleural spaces: Unremarkable. No pleural effusion. No pneumothorax. Heart/Mediastinum: Borderline to mild globular cardiomegaly consistent with 4-chamber enlargment and/or pericardial effusion. Bones/joints: Unremarkable. Soft tissues: Examination is limited secondary to body habitus. XR/XR chest 1V portable [id number] IMPRESSION: Borderline to mild globular cardiomegaly consistent with 4-chamber enlargment and/or pericardial effusion.
--- NOTE | 2023-12-05 01:20 | ECG_ITS ---
[facility] Test Date: 2023-12-05 Pat Name: Tammi Poole Department: Room: Gender: Female Ladle Pourer: : 1950 Requested By: Christian Wright Order Number: [id number] Isrrael MD: Jesusita Rodriguez M.D. Measurements Intervals Tutor Key Rate: 58 P: 50 DC: 250 QRS: 107 QRSD: 110 T: 0 QT: 214 QTc: 210 Interpretive Statements SINUS BRADYCARDIA WITH FIRST DEGREE AV BLOCK RIGHT AXIS DEVIATION [QRS AXIS > 100] LOW QRS VOLTAGE IN PRECORDIAL LEADS [QRS DEFLECTION < 1.0 mV IN CHEST LEADS] ST ELEVATION, CONSIDER ANTERIOR INJURY [MARKED ST ELEVATION W/O NORMALLY INFLECTED T-WAVE IN V2-V5] ST ELEVATION, CONSIDER INFERIOR INJURY [MARKED ST ELEVATION W/O NORMALLY INFLECTED T-WAVE IN II/aVF] ACUTE UT Compared to ECG 10/26/2023 23:39:44 ST (T wave) deviation now present.Myocardial infarct finding now present Sinus rhythm no longer present.Intraventricular conduction delay no longer present Electronically Signed On 12-05-2023 21:58:09 CDT by Jesusita Rodriguez M.D. [id number] f
[2023-12-05] MEDS: atropine 0.1 mg/mL Syr 10 mL 1 MG IVP (01:36)
[2023-12-05 01:42] LABS: Eosinophils % 0.7 %; Hematocrit 33.8 % (36-47); Lymphocytes # 0.7 10^3/uL (0.8-4.8); Lymphocytes % 15.2 %; Mean Corpuscular HGB Conc 30.8 g/dL (30-55); Mean Corpuscular Volume 91.1 fl (85-98); Mean Platelet Volume 10.7 fL (7.4-10.4); Monocytes # 0.3 10^3/uL (0.2-0.9); Monocytes % 5.8 %; Neutrophils # 3.39 10^3/uL (1.8-7.7); Neutrophils % 78.1 %; Nucleated Red Blood Cells # 0.1 /100WBC; Nucleated Red Blood Cells % 2.1 %; Platelet Count 73 10^3/cmm (157-399); Red Blood Count 3.71 10^6/uL (3.85-5.65); Red Cell Distribution Width 20.1 % (12.1-15.1); White Blood Count 4.34 10^3/uL (3.29-11.43)
[2023-12-05] MEDS: sodium chloride 0.9% 1,000 ML 999 ML IV (02:00)
[2023-12-05] MEDS: fentaNYL 50 mcg/mL INJ 2mL IVP (02:00)
[2023-12-05] MEDS: midazolam 1 mg/mL INJ 2 mL 2 MG IVP (02:00)
[2023-12-05 02:04] LABS: Troponin(5th) Baseline 45 ng/L (0-10)
[2023-12-05 02:13] LABS: ABG PCO2 53.7 mmHg (35-45); ABG PH Result 7.22 (7.35-7.45); Alveolar-Arterial Oxygen Gradi 46.2 mmHg (5-10); Arterial Blood Gas Hematocrit 26.7 % (37-47); Base Excess ABG -5.5 mmol/L (-2.0-2.0); Blood Gas Allen Test Pos; Blood Gas Sample Site Radial, right; Blood Gas Sample Type Arterial; Carboxyhemoglobin 1.8 %THgb (0.4-20.1); HCO3 ABG 22.1 mmol/L (22-26); HGB O2 Sat 98.3 % (95-100); Ionized Calcium Level - ABG 1.2 mmol/L (1.1-1.4); Methemoglobin 0.5 % (0.4-1.5); Oxygen Device NRB; Oxygen Saturation ABG > 100.0; PO2 FiO2 Ratio Arterial Blood 0; Potassium Level - ABG 5.5 mmol/L (3.5-5.0); Total Hemoglobin 8.7 g/dL (12-16)
[2023-12-05 02:13] LABS: NT Pro B Type Natriuretic Pept 597 pg/mL (0-125); Procalcitonin 0.18 ng/mL (0-0.5)
[2023-12-05 02:24] LABS: Alanine Aminotransferase 121 U/L (0-33); Albumin Level 3.4 g/dL (3.5-5.2); Alkaline Phosphatase 161 U/L (35-105); Anion Gap 18.4 (5-19); Aspartate Amino Transferase 84 U/L (0-32); C Reactive Protein 49.3 mg/L (0.0-4.9); Calcium 8.8 mg/dL (8.5-10.5); Carbon Dioxide 25 mmol/L (22-29); Chloride 101 mmol/L (98-107); Globulin 2.9 g/dL (1.3-4.6); Glucose 95 mg/dL (65-115); Magnesium 2.8 mg/dL (1.7-2.3); Osmolality Calculated 311 mOsm/kg (285-295); Potassium 6.4 mmol/L (3.5-5.1); Sodium 138 mmol/L (136-145); Total Bilirubin 0.2 mg/dL (0.15-1.2); Total Protein 6.3 g/dL (6.6-8.7)
[2023-12-05] MEDS: vecuronium 10 mg SDV IVP (02:25)
[2023-12-05] MEDS: etomidate 2 mg/mL INJ SDV 10 mL 20 MG IVP (02:25)
[2023-12-05 02:29] LABS: Blood Urea Nitrogen 83 mg/dL (8-23); Phosphorus 7.7 mg/dL (2.5-4.5)
--- NOTE | 2023-12-05 02:32 | XRR_ITS ---
PROCEDURE INFORMATION: Exam: XR Chest Exam date and time: 12/05/2023 2:33 AM Age: 73 years old Clinical indication: Device placement; Ett placement (vent status); Additional info: Et tube placement TECHNIQUE: Imaging protocol: Radiologic exam of the chest. Views: 1 view. COMPARISON: CR (CHEST, ) 12/05/2023 1:37 AM FINDINGS: Tubes, catheters and devices: Endotracheal tube tip over the bronchus intermedius. This could be pulled back 4.5 cm so it is proximal to the león. Lungs: Unremarkable. No consolidation. Pleural spaces: Unremarkable. No pleural effusion. No pneumothorax. Heart/Mediastinum: Unremarkable. No cardiomegaly. Bones/joints: Unremarkable. XR/XR chest 1V portable [id number] IMPRESSION: Endotracheal tube tip over the bronchus intermedius. This could be pulled back 4.5 cm so it is proximal to the león.
--- NOTE | 2023-12-05 02:35 | PC.NURSE ---
og tube placed @ 0235
--- NOTE | 2023-12-05 02:36 | ED_ITS ---
HPI - Altered Mental Status 2 General: Chief Complaint: Altered Mental Status Stated Complaint: AMS Time Seen by Provider: 12/05/23 01:23 Mode of arrival: EMS Limitations: altered mental status History of Present Illness: Patient brought in by EMS from long-term. They say she is has not been herself since Saturday. She not been eating or drinking properly. She is less alert than normal. Patient is normally nonverbal except 1 or 2 words but is alert to name. Upon arrival patient is bradycardic and responsive only to painful stimuli. Heart rate is in the 20s and she is hypothermic with a temperature of 87.9 degrees rectally. Per chart review last month she was admitted for acute renal failure with a potassium of 7.7, Review of Systems 2 General: Reports: ROS unobtainable due to endotracheal tube and ROS unobtainable due to mental status PFSH ED 2 PFSH: Medical History Right sided weakness Acute renal failure Aspiration pneumonia Hyponatremia Altered mental status Hyperkalemia Pressure ulcer HTN (hypertension) Dementia Physical Exam 2 Const: OTHER: Responsive to painful stimuli but does move all 4 extremities at times, occasional grunt but no communication sonorous respirations HENMT: COMMON NORMALS: normocephalic, atraumatic, external ears normal and Normal external nose present; dentition not normal (Very poor dentition on the lower) HEAD & SCALP: n ormocephalic and atraumatic NOSE: Normal external nose present EXTERNAL EAR: Yes external ears normal Eye: OTHER: Pupils appear to be pinpoint and reactive Chest: COMMONS NORMALS: normal inspection of the chest and normal palpation of entire chest wall Resp: OTHER: Decreased breath sounds bilaterally, sonorous type respirations Cardio: COMMON NORMALS: S1 normal heart sound present, S2 normal heart sound present, No gallops present (Cardio), No clicks present (Cardio) and No murmurs present (Cardio); negative for regular rate (Severe bradycardia irregular rhythm) RATE: a bnormal rate (Severe bradycardia irregular rhythm) HEART SOUNDS: S1 normal heart sound present and S2 normal heart sound present GI: COMMON NORMALS: Normal to inspection, nondistended, normoactive bowel sounds present, Soft to palpation, non-tender, No hepatosplenomegaly present and no masses PALPATION: Yes Soft to palpation and Yes No hepatosplenomegaly present Neuro: OTHER: Responsive to painful stimuli, has moved all 4 extremities at least once. Procedures Intubation Time out performed: Yes sedative: Etomidate Mg Given: 20 paralytic: Vecuronium Mg Given: 10 Laryngoscope: fiber optic video scope ET Tube Size: 8 Tube Secured Depth (cm): 25 Tube Secured Location: lips Tube Placement Confirmation: visualized tube passing through cords, equal breath sounds bilaterally and no breath sounds over epigastrium Patient Tolerated Procedure: well Intubation Complications: none Course 2 Vital Signs: Vital signs: Vital Signs Temperature 87.9 F L 12/05/23 02:00 Pulse Rate 86 12/05/23 03:31 Respiratory Rate 19 H 12/05/23 03:31 Blood Pressure 115/42 12/05/23 03:31 Pulse Oximetry 96 12/05/23 03:31 Oxygen Delivery Me thod Mechanical Ventil ation 12/05/23 03:31 Fraction of Inspir ed Oxygen 100 12/05/23 03:31 MDM - Altered Mental Status Medical Decision Making Patient presents to the ER by EMS with complaints of altered mental status, bradycardia, hypothermia, upon arrival patient's temperature was 87.9 rectally and she had a heart rate in the 20s with soft sonorous respirations. Patient was given 1 mg atropine which did not improve her heart rate, patient was then externally paced at 70 bpm. This did make the patient more arousable but still only responsive to painful stimuli however she does move all 4 extremities, patient still having sonorous respirations. It was thought best interest intubate this patient as she cannot protect her own airway. Patient was intubated placed on the ventilator, lab work was obtained which revealed a white count of 4.3 hemoglobin of 10.4 potassium of 6.4, BUN/creatinine of 83 and 2.7, phosphorus of 7.7, magnesium 2.8, troponin of 45, BNP of 597, Donald catheter was placed and OG tube was placed multiple EKGs was obtained 1 showing sinus bradycardia at 18 bpm, Dr. Bain was consulted on the first EKG he said significant bradycardia but no STEMI, patient was bolused a liter normal saline, given 10 units of IV insulin, 2 A of bicarb, 250 mL of D10, due to no beds in our ICU a call was placed to [facility]. Dr Lopes java sybase developer accepted the patient in transfer. He did suggest we put the patient on dopamine drip. We did place the patient on dopamine and titrated her up to 10 mics, blood pressure improved to 115/42, patient was flown out. Medical Records I reviewed the patient's medical records. Lab Data I reviewed the patient's lab results. 12/05/23 01:32 12/05/23 01:[address] 12/05/23 01:19 IMPRESSION: 1. Mild bilateral ethmoid sinus disease. 2. No acute intracranial findings. Chest X-Ray 12/05/23 03:08 IMPRESSION: Endotracheal tube tip over the distal trachea, 4 mm proximal to the origin of the león. Laboratory Results WBC 4.34 10^3/uL (3.29-11.43) 12/05/23 01:32 RBC 3.71 10^6/uL (3.85-5.65) L 12/05/23 01:32 Hgb 10.40 g/dL (11.27-16.99) L 12/05/23 01:32 Hct 33.8 % (36-47) L 12/05/23 01:32 MCV 91.1 fl (85-98) 12/05/23 01:32 MCH 28.0 pg (27-33) 12/05/23 01:32 MCHC 30.8 g/dL (30-55) 12/05/23 01:32 RDW 20.1 % (12.1-15.1) H 12/05/23 01:32 Plt Count 73 10^3/cmm (157-399) L 12/05/23 01:32 MPV 10.7 fL (7.4-10.4) H 12/05/23 01:32 Neut % (Auto) 78.1 % 12/05/23 01:32 Lymph % (Auto) 15.2 % 12/05/23 01:32 [place] % (Auto) 5.8 % 12/05/23 01:32 Eos % (Auto) 0.7 % 12/05/23 01:32 Baso % (Auto) 0.0 % 12/05/23 01:32 Neut # (Auto) 3.39 10^3/uL (1.8-7.7) 12/05/23 01:32 Lymph # (Auto) 0.7 10^3/uL (0.8-4.8) L 12/05/23 01:32 [place] # (Auto) 0.3 10^3/uL (0.2-0.9) 12/05/23 01:32 Eos # (Auto) 0.0 10^3/uL (0.0-0.8) 12/05/23 01:32 Baso # (Auto) 0.0 10^3/uL (0.0-0.1) 12/05/23 01:32 Nucleated RBC % (auto) 2.1 % 12/05/23 01:32 Nucleated RBCs # 0.1 /100WBC 12/05/23 01:32 Specimen Type Arterial 12/05/23 03:30 Sample Site Radial, left 12/05/23 03:30 ABG pH 7.23 (7.35-7.45) L 12/05/23 03:30 ABG pCO2 48.3 mmHg (35-45) H 12/05/23 03:30 ABG pO2 207.0 mmHg (80.0-100.0) H 12/05/23 03:30 ABG PO2/FiO2 Ratio 0 12/05/23 03:30 ABG HCO3 20.2 mmol/L (22-26) L 12/05/23 03:30 ABG O2 Saturation > 100.0 12/05/23 03:30 ABG Base Excess -7.2 mmol/L (-2.0-2.0) L 12/05/23 03:30 Lukasz Test Pos 12/05/23 03:30 A-a O2 Gradient 20.4 mmHg (5-10) H 12/05/23 03:30 Hematocrit 29.6 % (37-47) L 12/05/23 03:30 Hgb O2 Saturation 98.0 % (95-100) 12/05/23 03:30 Carboxyhemoglobin 1.9 %THgb (0.4-20.1) 12/05/23 03:30 Methemoglobin 0.6 % (0.4-1.5) 12/05/23 03:30 Total Hemoglobin 9.6 g/dL (12-16) L 12/05/23 03:30 Sodium 142.0 mmol/L (131-143) 12/05/23 03:30 Potassium 5.0 mmol/L (3.5-5.0) 12/05/23 03:30 Glucose 151.0 mg/dL (70-115) H 12/05/23 03:30 Ionized Calcium 1.2 mmol/L (1.1-1.4) 12/05/23 03:30 O2 Delivery Device Vent 12/05/23 03:30 FiO2 60.0 % 12/05/23 03:30 Tidal Volume 0.45 12/05/23 03:30 PEEP 8.0 cmH20 12/05/23 03:30 Blasting Clay Miner ID [email or web address] 12/05/23 03:30 Sodium 138 mmol/L (136-145) 12/05/23 01:32 Potassium 6.4 mmol/L (3.5-5.1) H 12/05/23 01:32 Chloride 101 mmol/L (98-107) 12/05/23 01:32 Carbon Dioxide 25 mmol/L (22-29) 12/05/23 01:32 Anion Gap 18.4 (5-19) 12/05/23 01:32 BUN 83 mg/dL (8-23) H* 12/05/23 01:32 Creatinine 2.7 mg/dL (0.5-0.9) H 12/05/23 01:32 GFR Calculation Not Reportable 12/05/23 01:32 Glucose 95 mg/dL (65-115) 12/05/23 01:32 Calculated Osmolality 311 mOsm/kg (285-295) H 12/05/23 01:32 Lactic Acid 1.0 mmol/L (0.5-2.2) 12/05/23 01:32 Calcium 8.8 mg/dL (8.5-10.5) 12/05/23 01:32 Phosphorus 7.7 mg/dL (2.5-4.5) H* 12/05/23 01:32 Magnesium 2.8 mg/dL (1.7-2.3) H 12/05/23 01:32 Total Bilirubin 0.2 mg/dL (0.15-1.2) 12/05/23 01:32 AST 84 U/L (0-32) H 12/05/23 01:32 ALT 121 U/L (0-33) H 12/05/23 01:32 Alkaline Phosphatase 161 U/L (35-105) H 12/05/23 01:32 Troponin T Baseline 45 ng/L (0-10) H 12/05/23 01:32 C-Reactive Protein 49.3 mg/L (0.0-4.9) H 12/05/23 01:32 NT-Pro-B Natriuret Pep 597 pg/mL (0-125) H 12/05/23 01:32 Total Protein 6.3 g/dL (6.6-8.7) L 12/05/23 01:32 Albumin 3.4 g/dL (3.5-5.2) L 12/05/23 01:32 Globulin 2.9 g/dL (1.3-4.6) 12/05/23 01:32 Procalcitonin 0.18 ng/mL (0-0.5) 12/05/23 01:32 Urine Color Yellow (Yellow) 12/05/23 03:06 Urine Appearance Slightly cloudy (CLEAR) 12/05/23 03:06 Urine pH 5 (5-7) 12/05/23 03:06 Ur Specific Reagan 1.030 (1.005-1.030) 12/05/23 03:06 Urine Protein Neg (Negative) 12/05/23 03:06 Urine Glucose (UA) Norm (Normal) 12/05/23 03:06 Urine Ketones 1+ (Negative) H 12/05/23 03:06 Urine Blood 2+ (Negative) H 12/05/23 03:06 Urine Nitrate Negative (Negative) 12/05/23 03:06 Urine Bilirubin 2+ (Negative) H 12/05/23 03:06 Urine Urobilinogen 1 mg/dL (Negative) H 12/05/23 03:06 Ur Leukocyte Esterase 1+ (Negative) H 12/05/23 03:06 Urine RBC 5-10 /hpf (0-2) H 12/05/23 03:06 Urine WBC 5-10 /hpf (0-5) H 12/05/23 03:06 Ur Squamous Epith Cells 10-15 /hpf (0-5) H 12/05/23 03:06 Amorphous Sediment Not Reportable 12/05/23 03:06 Urine Bacteria Trace /hpf (NONE) 12/05/23 03:06 Urine Mucus 1+ /hpf 12/05/23 03:06 All radiology interpretation(s) finalized by discharge Critical Care Time 2 Critical Care Time: Critical Care Time: Yes Total Critical Care Time: 160 Attestation: The patient was emergently evaluated this patient's presentation and case had a high probability of a clinically significant, sudden, or life-threatening deterioration of the patient's initial critical presentation or condition which required my full and direct attention, intervention and personal management. Discharge Plan Discharge Patient Disposition: Xfer Short-Term Hosp Clinical Impression: Bradycardia, Altered mental status, Acute hypoxic respiratory failure, Acute hyperkalemia, Acute renal failure, Hypothermia, Acute hypotension Condition: Stable Referrals: Emanuel Shaffer MD [Primary Care Provider] - Coding Level of Care Code ED Cashier Receptionist for Lucina Lizama
[2023-12-05] MEDS: insulin regular-human 100 units/1 mL 10 UNIT IVP (02:56)
[2023-12-05] MEDS: dextrose 10% 250 ML 1000 ML IV (03:00)
--- NOTE | 2023-12-05 03:08 | XRR_ITS ---
PROCEDURE INFORMATION: Exam: XR Chest Exam date and time: 12/05/2023 3:14 AM Age: 73 years old Clinical indication: Device placement; Ett placement (vent status); Additional info: Et tube repositioned TECHNIQUE: Imaging protocol: Radiologic exam of the chest. Views: 1 view. COMPARISON: CR (CHEST, ) 12/05/2023 3:14 AM FINDINGS: Tubes, catheters and devices: Endotracheal tube tip over the distal trachea, 4 mm proximal to the origin of the león. Lungs: Unremarkable. No consolidation. Pleural spaces: Unremarkable. No pleural effusion. No pneumothorax. Heart/Mediastinum: Unremarkable. No cardiomegaly. Bones/joints: Unremarkable. XR/XR chest 1V portable [id number] IMPRESSION: Endotracheal tube tip over the distal trachea, 4 mm proximal to the origin of the león.
[2023-12-05] MEDS: calcium gluconate 0.1 gm/mL 10% SDV 10mL 1 GM IVP (03:20)
--- NOTE | 2023-12-05 03:20 | ECG_ITS ---
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 Measurements Intervals [place] Rate: 18 P: 31 HI: 149 QRS: 102 QRSD: 93 T: 35 QT: 650 QTc: 358 Interpretive Statements SINUS BRADYCARDIA RIGHT AXIS DEVIATION [QRS AXIS > 100] LOW QRS VOLTAGE IN PRECORDIAL LEADS [QRS DEFLECTION < 1.0 mV IN CHEST LEADS] PROLONGED QT INTERVAL CRITICAL TEST RESULT Compared to ECG 10/26/2023 23:39:44 Prolonged QT interval now present Sinus rhythm no longer present First degree AV block no longer present Intraventricular conduction delay no longer present Electronically Signed On 12-05-2023 22:08:18 CDT by Jesusita Rodriguez M.D. [id number] f
[2023-12-05] MEDS: DOPamine drip 400 MG/250 ML PREMIX 20.4100000000000001 MG IV (03:21)
[2023-12-05 03:41] LABS: ABG PCO2 48.3 mmHg (35-45); ABG PH Result 7.23 (7.35-7.45); Alveolar-Arterial Oxygen Gradi 20.4 mmHg (5-10); Arterial Blood Gas Hematocrit 29.6 % (37-47); Base Excess ABG -7.2 mmol/L (-2.0-2.0); Blood Gas Allen Test Pos; Blood Gas Sample Site Radial, left; Blood Gas Sample Type Arterial; Blood Gas Tidal Volume 0.45; Carboxyhemoglobin 1.9 %THgb (0.4-20.1); HCO3 ABG 20.2 mmol/L (22-26); Ionized Calcium Level - ABG 1.2 mmol/L (1.1-1.4); Methemoglobin 0.6 % (0.4-1.5); Oxygen Device VENT; Oxygen Saturation ABG > 100.0; PO2 FiO2 Ratio Arterial Blood 0; Total Hemoglobin 9.6 g/dL (12-16)
[2023-12-05 03:45] LABS: Add Urine Microscopic? YES; Bilirubin Urine 2+ (Negative); Blood Urine 2+ (Negative); Glucose Urine UA Norm (Normal); Ketones Urine 1+ (Negative); Leukocyte Esterase Urine 1+ (Negative); Nitrate Urine Negative (Negative); Protein Urine Neg (Negative); Urine Appearance Slightly Cloudy (CLEAR); Urine Color Yellow (Yellow); Urobilinogen Urine 1 mg/dL (Negative); pH Urine 5 (5-7)
[2023-12-05 03:46] LABS: Add Urine Culture? No; Bacteria Urine TRACE /hpf; Mucus Urine 1+ /hpf
--- NOTE | 2023-12-05 04:11 | PC.NURSE ---
pt arrives to ed bradycardic at 25 bpm. 1 mg atropine administered at 0136. HR went from 25 to mid 30s but went back down to 25. external pacing began at 013 at 60 mA. HR was then [address] wagner orders pacing turned off to obtain 2nd ekg. 2nd ekg obtained at 215 showing HR of 18. pt was then paced again at 20 MA with HR of 70. 50 IVP fentanyl and 2 IVP versed then administered due to pt pain from pacing. pt given 20 mg etomidate and 10 mg vecuronium at 022. pt intubated at 227 25 @ lip with 8.0 ett tube
--- NOTE | 2023-12-05 04:21 | PC.NURSE ---
no sedation administered continuously IV to pt. pt displays no reaction to vent, no movements. 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 aware. receiving RN at [facility] notified without further requests.
[2023-12-05 05:10] LABS: Glucose Point of Care 119 mg/dL (70-110)
== END 2023-12-05 04:41 | disposition short-term general hospital (02) ==
PROVIDERS: Emergency Provider Emergency Medicine; PCP Family Medicine
DX: R41.82 Altered mental status, unspecified (principal); R00.1 Bradycardia, unspecified; J96.01 Acute respiratory failure with hypoxia; N17.9 Acute kidney failure, unspecified; E87.5 Hyperkalemia; I95.9 Hypotension, unspecified; T68.XXXA Hypothermia, initial encounter; I10 Essential (primary) hypertension; F03.90 Unspecified dementia, unspecified severity, without behavioral disturbance, psychotic disturbance, mood disturbance, and anxiety
CPT/HCPCS: 31500; 36416; 36600; 51702; 70450; 71045; 80051; 80053; 81001; 82330; 82805; 82962; 83605; 83735; 83880; 84100; 84145; 84484; 85025; 86140; 93005; 94002; 94799; 96361; 96374; 96375; 99291; 99292; J0461; J0612; J1265; J1815; J2250; J3010; J3490; J7030; J7799

== ENCOUNTER 2023-12-22 06:08 | Inpatient (IN) | payer MEDICARE, MEDICAID, SELFPAY ==
[2023-12-22] VITALS (36 sets, daily range): BP systolic 103–166; BP diastolic 51–90; PULSE 42–66; RESP 10–20; TEMP 36.2–36.5; O2SAT 90–100; BMI 45.5
--- NOTE | 2023-12-22 06:14 | ECG_ITS ---
[facility] Test Date: 2023-12-22 Pat Name: Tammi Poole Department: Room: Gender: Female Reports Analyst: : 1950 Requested By: Rhett Kamara Order Number: [id number] Isrrael MD: Jesusita Rodriguez M.D. Measurements Intervals [place] Rate: 60 P: 68 SD: 182 QRS: 93 QRSD: 102 T: 46 QT: 416 QTc: 417 Interpretive Statements SINUS RHYTHM WITH OCCASIONAL VENTRICULAR PREMATURE COMPLEXES BORDERLINE RIGHT AXIS DEVIATION [QRS AXIS > 90] Compared to ECG 12/05/2023 02:16:18 Ventricular premature complex(es) now present Sinus bradycardia no longer present Prolonged QT interval no longer present Electronically Signed On 12-22-2023 21:01:19 CDT by Jesusita Rodriguez M.D. [id number] f
--- NOTE | 2023-12-22 06:14 | CTR_ITS ---
PROCEDURE INFORMATION: Exam: CT Head Without Contrast Exam date and time: 12/22/2023 6:53 AM Age: 73 years old Clinical indication: Altered mental status/memory loss; Additional info: AMS TECHNIQUE: Imaging protocol: Computed tomography of the head without contrast. Radiation optimization: All CT scans at this facility use at least one of these dose optimization techniques: automated exposure control; mA and/or kV adjustment per patient size (includes targeted exams where dose is matched to clinical indication); or iterative reconstruction. COMPARISON: CT head wo con* [id number] 12/05/2023 1:10 AM RADIATION DOSE METRICS: Total DLP (mGy-cm): 2327.38 FINDINGS: Brain: . No hemorrhage. Periventricular white matter lucency represents atherosclerotic encephalopathic changes. No mass effect. Cerebral ventricles: No ventriculomegaly. Ventricular prominence proportionate to the degree of atrophy observed. Paranasal sinuses: Mild mucosal thickening in the maxillary and ethmoid sinuses. Mastoid air cells: Visualized mastoid air cells are well aerated. Nasal cavity: Enlargement of the nasal turbinates particularly on the right side. Bones: Unremarkable. No acute fracture. Soft tissues: Unremarkable. CT/CT head wo con* [id number] IMPRESSION: No acute intracranial abnormality.
--- NOTE | 2023-12-22 06:14 | XRR_ITS ---
PROCEDURE INFORMATION: Exam: XR Chest Exam date and time: 12/22/2023 6:21 AM Age: 73 years old Clinical indication: Cough and dyspnea; Patient HX: AMS; Additional info: Dyspnea/cough TECHNIQUE: Imaging protocol: Radiologic exam of the chest. Views: 1 view. COMPARISON: CR XR chest 1V portable [id number] 12/05/2023 3:14 AM FINDINGS: Lungs: Increased density at the lateral left lung base representing atelectasis or infiltrate. Pleural spaces: Unremarkable. No pleural effusion. No pneumothorax. Heart/Mediastinum: See Vasculature finding. Vasculature: Mild cardiomegaly and uncoiling of the thoracic aorta. Bones/joints: Unremarkable. XR/XR chest 1V portable [id number] IMPRESSION: Mild opacity at the lateral left lung base.
[2023-12-22 06:22] LABS: Basophils # 0.1 10^3/uL (0.0-0.1); Basophils % 1.7 %; Eosinophils # 0.3 10^3/uL (0.0-0.8); Eosinophils % 7.4 %; Hematocrit 27.2 % (36-47); Lymphocytes % 24.1 %; Mean Corpuscular HGB Conc 31.6 g/dL (30-55); Mean Corpuscular Hemoglobin 29.5 pg (27-33); Mean Corpuscular Volume 93.2 fl (85-98); Mean Platelet Volume 10.2 fL (7.4-10.4); Monocytes # 0.3 10^3/uL (0.2-0.9); Monocytes % 7.6 %; Neutrophils # 2.39 10^3/uL (1.8-7.7); Nucleated Red Blood Cells % 0.5 %; Platelet Count 256 10^3/cmm (157-399); Red Blood Count 2.92 10^6/uL (3.85-5.65); Red Cell Distribution Width 17.2 % (12.1-15.1); White Blood Count 4.06 10^3/uL (3.29-11.43)
--- NOTE | 2023-12-22 06:25 | CTR_ITS ---
PROCEDURE INFORMATION: Exam: CT Abdomen And Pelvis Without Contrast Exam date and time: 12/22/2023 6:56 AM Age: 73 years old Clinical indication: Abdominal pain; Generalized TECHNIQUE: Imaging protocol: Computed tomography of the abdomen and pelvis without contrast. Radiation optimization: All CT scans at this facility use at least one of these dose optimization techniques: automated exposure control; mA and/or kV adjustment per patient size (includes targeted exams where dose is matched to clinical indication); or iterative reconstruction. COMPARISON: MR MRCP [id number] 07/31/2018 2:43 AM RADIATION DOSE METRICS: Total DLP (mGy-cm): 1104.23 FINDINGS: Liver: Normal. No mass. Gallbladder and biliary ducts: Cholecystectomy. Pancreas: Normal. No ductal dilation. Spleen: 14 cm splenomegaly. Adrenal glands: Normal. No mass. Kidneys and ureters: Atrophic left kidney. Stomach and bowel: Unremarkable. No obstruction. No mucosal thickening. Appendix: No evidence of appendicitis. Intraperitoneal space: Unremarkable. No free air. No significant fluid collection. Vasculature: Unremarkable. No abdominal aortic aneurysm. Lymph nodes: Unremarkable. No enlarged lymph nodes. Urinary bladder: The urinary bladder is collapsed around a Donald catheter. Reproductive: Heavily calcified uterine fibroids. Bones/joints: Slight upper endplate compression of T12 and L3. Soft tissues: Unremarkable. CT/CT abdomen pelvis con [id number] IMPRESSION: No acute subdiaphragmatic pathology.
--- NOTE | 2023-12-22 06:30 | W.ED.AMS ---
HPI - Altered Mental Status General: Chief Complaint: Altered Mental Status Stated Complaint: AMS Time Seen by Provider: 12/22/23 06:10 Source: EMS Mode of arrival: EMS Limitations: altered mental status History of Present Illness: 73-year-old female who presents to the emergency room with altered mental status. She arrives via EMS from [place]. Report from [place] was that within the last 45 minutes she suddenly became altered and they found her with decreased level of consciousness. No witnessed seizures. She has a history of dementia and seizures as previously here had persistent seizures and was transferred out. Patient's vital signs are stable she does react to painful stimuli when applied either to the left or to the right. No report of fever no report of recent injury. MD complaint: altered mental status and decreased responsiveness Review of Systems General: Reports: ROS unobtainable due to mental status PFS ED PFSH: Medical History Right sided weakness Acute renal failure Aspiration pneumonia Hyponatremia Altered mental status Hyperkalemia Pressure ulcer HTN (hypertension) Dementia Physical Exam HENMT: COMMON NORMALS: normocephalic, atraumatic and hearing grossly normal bilaterally HEAD & SCALP: normocephalic and atraumatic Resp: COMMON NORMALS: normal respiratory effort, No retractions, No use of accessory muscles and clear to auscultation bilaterally AUSCULTATION: clear to auscultation bilaterally Cardio: COMMON NORMALS: regular rhythm and No murmurs present (Cardio) RATE: bradycardic RHYTHM: regular rhythm GI: COMMON NORMALS: Soft to palpation and No hepatosplenomegaly present AUSCULTATION: Yes normoactive bowel sounds PALPATION: Yes Soft to palpation, No Tenderness to palpation present (GI), No Guarding due to palpation present (GI) and Yes No hepatosplenomegaly present Back/Pelvis: OTHER: No decubiti on the back or buttocks or his presacral area Extremity: OTHER: Lower extremities bilaterally have irritation and desquamation of the skin from the knee inferior when arriving here was initially wrapped this was removed there is no evidence of ulcerations or decubiti Neuro: WILMAN COMA SCALE: document GCS findings Wilman coma scale eye opening: To sound [place] coma scale verbal response: Sounds [place] coma scale motor response: Localising Wilman coma scale total score: 10 OTHER: Patient response to noxious stimuli both on the left and on the right Skin: COMMON NORMALS: no rashes or lesions noted GENERAL SKIN EXAM: no rashes or lesions noted Course Vital Signs: Vital signs: Vital Signs Temperature 97.7 F 12/22/23 14:30 Pulse Rate 53 L 12/22/23 16:00 Respiratory Rate 16 12/22/23 16:00 Blood Pressure 109/60 12/22/23 16:00 Pulse Oximetry 100 12/22/23 16:00 Oxygen Delivery Me thod Nasal Cannula 12/22/23 14:40 Fraction of Inspir ed Oxygen 35 12/22/23 11:15 MDM - Altered Mental Status Medical Decision Making Altered mental status with encephalopathy and acute bradycardia because of encephalopathy is not immediately apparent she is mildly anemic. To get the records from [facility] they had thought her bradycardia was due to sepsis but her cultures came back negative or hypothermia. She was discharged home on metoprolol she did not take her metoprolol as we did take it last night. She is continue to be bradycardic but not nearly to the extent she was previously her blood pressure has been well-maintained. She does look like she has some mild heart failure. Patient was given Lasix will admit discussed with hospitalist orders written Medical Records I reviewed the patient's medical records. Lab Data I reviewed the patient's lab results. 12/22/23 06:00 12/22/23 06:00 Radiology Impressions Chest X-Ray 12/22/23 06:14 IMPRESSION: Mild opacity at the lateral left lung base. Head CT 12/22/23 06:14 IMPRESSION: No acute intracranial abnormality. Abdomen/Pelvis CT 12/22/23 06:25 IMPRESSION: No acute subdiaphragmatic pathology. Head/Neck CTA 12/22/23 07:19 IMPRESSION: No large vessel stenosis or occlusion. IMPRESSION: Moderate right ICA stenosis. REFERENCES: NASCET CRITERIA. The degree of stenosis in the cervical segment of the internal carotid artery is based on NASCET criteria. Normal is no stenosis. Mild is less than 50% stenosis. Moderate is 50-69% stenosis. Severe is 70% to 99% stenosis. Total occlusion is no detectable patent lumen. Laboratory Results WBC 4.06 10^3/uL (3.29-11.43) 12/22/23 06:00 RBC 2.92 10^6/uL (3.85-5.65) L 12/22/23 06:00 Hgb 8.60 g/dL (11.27-16.99) L 12/22/23 06:00 Hct 27.2 % (36-47) L 12/22/23 06:00 MCV 93.2 fl (85-98) 12/22/23 06:00 MCH 29.5 pg (27-33) 12/22/23 06:00 MCHC 31.6 g/dL (30-55) 12/22/23 06:00 RDW 17.2 % (12.1-15.1) H 12/22/23 06:00 Plt Count 256 10^3/cmm (157-399) 12/22/23 06:00 MPV 10.2 fL (7.4-10.4) 12/22/23 06:00 Neut % (Auto) 59.0 % 12/22/23 06:00 Lymph % (Auto) 24.1 % 12/22/23 06:00 [place] % (Auto) 7.6 % 12/22/23 06:00 Eos % (Auto) 7.4 % 12/22/23 06:00 Baso % (Auto) 1.7 % 12/22/23 06:00 Neut # (Auto) 2.39 10^3/uL (1.8-7.7) 12/22/23 06:00 Lymph # (Auto) 1.0 10^3/uL (0.8-4.8) 12/22/23 06:00 [place] # (Auto) 0.3 10^3/uL (0.2-0.9) 12/22/23 06:00 Eos # (Auto) 0.3 10^3/uL (0.0-0.8) 12/22/23 06:00 Baso # (Auto) 0.1 10^3/uL (0.0-0.1) 12/22/23 06:00 Nucleated RBC % (auto) 0.5 % 12/22/23 06:00 Nucleated RBCs # 0.0 /100WBC 12/22/23 06:00 PT 14.90 SECONDS (12.1-14.9) 12/22/23 06:28 INR 1.13 (0.8-1.2) 12/22/23 06:28 APTT 30.7 SECONDS (23.9-36.7) 12/22/23 06:28 Specimen Type Arterial 12/22/23 06:41 Sample Site Radial, left 12/22/23 06:41 ABG pH 7.41 (7.35-7.45) 12/22/23 06:41 ABG pCO2 59.0 mmHg (35-45) H 12/22/23 06:41 ABG pO2 66.6 mmHg (80.0-100.0) L 12/22/23 06:41 ABG HCO3 37.4 mmol/L (22-26) H 12/22/23 06:41 ABG O2 Saturation 93.6 12/22/23 06:41 ABG Base Excess 11.3 mmol/L (-2.0-2.0) H 12/22/23 06:41 Lukasz Test Pos 12/22/23 06:41 A-a O2 Gradient 1.6 mmHg (5-10) L 12/22/23 06:41 Hematocrit 27.5 % (37-47) L 12/22/23 06:41 Hgb O2 Saturation 91.7 % (95-100) L 12/22/23 06:41 Carboxyhemoglobin 1.8 %THgb (0.4-20.1) 12/22/23 06:41 Methemoglobin 0.2 % (0.4-1.5) L 12/22/23 06:41 Total Hemoglobin 9.0 g/dL (12-16) L 12/22/23 06:41 Sodium 139.0 mmol/L (131-143) 12/22/23 06:41 Potassium 4.1 mmol/L (3.5-5.0) 12/22/23 06:41 Glucose 93.0 mg/dL (70-115) 12/22/23 06:41 Ionized Calcium 1.2 mmol/L (1.1-1.4) 12/22/23 06:41 O2 Delivery Device Nc 12/22/23 06:41 O2 Liters/Min 4.0 % 12/22/23 06:41 Consulting Services Project Manager ID [email or web address] 12/22/23 06:41 Sodium 137 mmol/L (136-145) 12/22/23 06:00 Potassium 4.2 mmol/L (3.5-5.1) 12/22/23 06:00 Chloride 93 mmol/L (98-107) L 12/22/23 06:00 Carbon Dioxide 36 mmol/L (22-29) H 12/22/23 06:00 Anion Gap 12.2 (5-19) 12/22/23 06:00 BUN 41 mg/dL (8-23) H 12/22/23 06:00 Creatinine 1.6 mg/dL (0.5-0.9) H 12/22/23 06:00 GFR Calculation Not Reportable 12/22/23 06:00 Glucose 93 mg/dL (65-115) 12/22/23 06:00 Calculated Osmolality 294 mOsm/kg (285-295) 12/22/23 06:00 Lactic Acid 0.8 mmol/L (0.5-2.2) 12/22/23 06:00 Calcium 8.5 mg/dL (8.5-10.5) 12/22/23 06:00 Total Bilirubin 0.4 mg/dL (0.15-1.2) 12/22/23 06:00 AST 12 U/L (0-32) 12/22/23 06:00 ALT 14 U/L (0-33) 12/22/23 06:00 Alkaline Phosphatase 143 U/L (35-105) H 12/22/23 06:00 Ammonia 22 umol/L (11-51) 12/22/23 08:23 Troponin T Baseline 51 ng/L (0-10) H 12/22/23 06:00 Troponin T 120 Minute 46.75 ng/L (0-10) H 12/22/23 08:20 Delta Troponin T -4.25 ABS# (0-10) L 12/22/23 08:20 NT-Pro-B Natriuret Pep 1995 pg/mL (0-125) H 12/22/23 06:00 Total Protein 6.4 g/dL (6.6-8.7) L 12/22/23 06:00 Albumin 3.2 g/dL (3.5-5.2) L 12/22/23 06:00 Globulin 3.2 g/dL (1.3-4.6) 12/22/23 06:00 Procalcitonin 0.10 ng/mL (0-0.5) 12/22/23 06:00 TSH 1.69 uIU/mL (0.27-4.20) 12/22/23 06:00 Urine Color Yellow (Yellow) 12/22/23 06:30 Urine Appearance Clear (CLEAR) 12/22/23 06:30 Urine pH 6 (5-7) 12/22/23 06:30 Ur Specific [place] 1.015 (1.005-1.030) 12/22/23 06:30 Urine Protein Trace (Negative) 12/22/23 06:30 Urine Glucose (UA) Norm (Normal) 12/22/23 06:30 Urine Ketones Negative (Negative) 12/22/23 06:30 Urine Blood Neg (Negative) 12/22/23 06:30 Urine Nitrate Negative (Negative) 12/22/23 06:30 Urine Bilirubin Neg (Negative) 12/22/23 06:30 Urine Urobilinogen Norm mg/dL (Negative) 12/22/23 06:30 Ur Leukocyte Esterase Negative (Negative) 12/22/23 06:30 Urine RBC None /hpf (0-2) 12/22/23 06:30 Urine WBC Rare /hpf (0-5) 12/22/23 06:30 Ur Squamous Epith Cells 0-4 /hpf (0-5) H 12/22/23 06:30 Amorphous Sediment Not Reportable 12/22/23 06:30 Urine Bacteria Trace /hpf (NONE) 12/22/23 06:30 All radiology interpretation(s) finalized by discharge Discharge Plan Discharge Patient Disposition: Admitted As Inpatient Admit Provider: Nigel Peterson Clinical Impression: Acute encephalopathy, Sinus bradycardia Condition: Stable Coding Level of Care Code ED Axle Inspector for Lucina Lizama
[2023-12-22 06:37] LABS: Alanine Aminotransferase 14 U/L (0-33); Albumin Level 3.2 g/dL (3.5-5.2); Alkaline Phosphatase 143 U/L (35-105); Anion Gap 12.2 (5-19); Aspartate Amino Transferase 12 U/L (0-32); Blood Urea Nitrogen 41 mg/dL (8-23); Calcium 8.5 mg/dL (8.5-10.5); Carbon Dioxide 36 mmol/L (22-29); Chloride 93 mmol/L (98-107); Globulin 3.2 g/dL (1.3-4.6); Glucose 93 mg/dL (65-115); Osmolality Calculated 294 mOsm/kg (285-295); Potassium 4.2 mmol/L (3.5-5.1); Sodium 137 mmol/L (136-145); Total Bilirubin 0.4 mg/dL (0.15-1.2); Total Protein 6.4 g/dL (6.6-8.7)
[2023-12-22 06:38] LABS: Troponin(5th) Baseline 51 ng/L (0-10)
[2023-12-22 06:39] LABS: Creatinine Clr Calc Pharmacy 38.5941
[2023-12-22 06:41] LABS: ABG PH Result 7.41 (7.35-7.45); Alveolar-Arterial Oxygen Gradi 1.6 mmHg (5-10); Arterial Blood Gas Hematocrit 27.5 % (37-47); Base Excess ABG 11.3 mmol/L (-2.0-2.0); Blood Gas Allen Test Pos; Blood Gas Operator Identificat TUNCA3; Blood Gas Sample Site Radial, left; Blood Gas Sample Type Arterial; Carboxyhemoglobin 1.8 %THgb (0.4-20.1); HCO3 ABG 37.4 mmol/L (22-26); HGB O2 Sat 91.7 % (95-100); Ionized Calcium Level - ABG 1.2 mmol/L (1.1-1.4); Methemoglobin 0.2 % (0.4-1.5); Oxygen Device NC; Oxygen Saturation ABG 93.6; PO2 ABG 66.6 mmHg (80.0-100.0); Potassium Level - ABG 4.1 mmol/L (3.5-5.0)
[2023-12-22 06:46] LABS: Add Urine Microscopic? YES; Bilirubin Urine Neg (Negative); Blood Urine Neg (Negative); Glucose Urine UA Norm (Normal); Ketones Urine Negative (Negative); Leukocyte Esterase Urine Negative (Negative); Nitrate Urine Negative (Negative); Protein Urine Trace (Negative); Specific Gravity, Urine 1.015 (1.005-1.030); Urine Appearance Clear (CLEAR); Urine Color Yellow (Yellow); Urobilinogen Urine Norm (Negative); pH Urine 6 (5-7)
[2023-12-22 06:47] LABS: Add Urine Culture? No; Bacteria Urine TRACE /hpf; Squamous Epithelial Cell Urine 0-4 /hpf (0-5); WBC Urine RARE /hpf (0-5)
[2023-12-22 06:58] LABS: Lactic Sepsis W/Reflex 0.8 mmol/L (0.5-2.2)
[2023-12-22 07:05] LABS: NT Pro B Type Natriuretic Pept 1995 pg/mL (0-125)
--- NOTE | 2023-12-22 07:19 | CTR_ITS ---
PROCEDURE INFORMATION: Exam: CTA Head With Contrast, Arteriography Exam date and time: 12/22/2023 7:35 AM Age: 73 years old Clinical indication: Cognitive deficit; Altered mental status; Additional info: Ams/nonresponsive TECHNIQUE: Imaging protocol: Computed tomographic angiography of the head with contrast. Exam focused on the arteries. 3D rendering (Not supervised by radiologist): MIP and/or 3D reconstructed images were created by the technologist. Radiation optimization: All CT scans at this facility use at least one of these dose optimization techniques: automated exposure control; mA and/or kV adjustment per patient size (includes targeted exams where dose is matched to clinical indication); or iterative reconstruction. Contrast material: OMNI 350; Contrast volume: 100 ml; Contrast route: INTRAVENOUS (IV); COMPARISON: CT head wo con* [id number] 12/22/2023 6:53 AM RADIATION DOSE METRICS: Total DLP (mGy-cm): 573.5 FINDINGS: ANTERIOR CIRCULATION: Right internal carotid artery: Intracranial segment is patent with no significant stenosis. No aneurysm. Right middle cerebral artery: No occlusion or significant stenosis. No aneurysm. Right anterior cerebral artery: No occlusion or significant stenosis. No aneurysm. Left internal carotid artery: Intracranial segment is patent with no significant stenosis. No aneurysm. Left middle cerebral artery: No occlusion or significant stenosis. No aneurysm. Left anterior cerebral artery: No occlusion or significant stenosis. No aneurysm. POSTERIOR CIRCULATION: Right vertebral artery: No occlusion or significant stenosis. No aneurysm. Left vertebral artery: No occlusion or significant stenosis. No aneurysm. Basilar artery: No occlusion or significant stenosis. No aneurysm. Right posterior cerebral artery: No occlusion or significant stenosis. No aneurysm. Left posterior cerebral artery: No occlusion or significant stenosis. No aneurysm. Brain: No definite mass, mass effect, or midline shift. Cerebral ventricles: No ventriculomegaly. Bones/joints: Unremarkable. No acute fracture. Soft tissues: Unremarkable. PROCEDURE INFORMATION: Exam: CTA Neck With Contrast Exam date and time: 12/22/2023 7:35 AM Age: 73 years old Clinical indication: Cognitive deficit; Altered mental status; Additional info: Ams/nonresponsive TECHNIQUE: Imaging protocol: Computed tomographic angiography of the neck with contrast. Exam focused on the cervical segments of the vasculature. 3D rendering (Not supervised by radiologist): MIP and/or 3D reconstructed images were created by the technologist. Radiation optimization: All CT scans at this facility use at least one of these dose optimization techniques: automated exposure control; mA and/or kV adjustment per patient size (includes targeted exams where dose is matched to clinical indication); or iterative reconstruction. Contrast material: OMNI 350; Contrast volume: 100 ml; Contrast route: INTRAVENOUS (IV); COMPARISON: CT head wo ilsa* [id number] 12/22/2023 6:53 AM RADIATION DOSE METRICS: Total DLP (mGy-cm): 573.5 FINDINGS: Right common carotid artery: No stenosis. No dissection or occlusion. Right internal carotid artery: There is fairly heavy calcified plaque in the proximal right internal carotid artery. The degree of narrowing is approximately 60%. Maximum narrowing occurs at approximately the C3-C4 level. Right external carotid artery: No occlusion or stenosis of the origin. Left common carotid artery: No stenosis. No dissection or occlusion. Left internal carotid artery: No stenosis of the extracranial segment. No dissection or occlusion. Left external carotid artery: No occlusion or stenosis of the origin. Right vertebral artery: No stenosis. No dissection or occlusion. Left vertebral artery: No stenosis. No dissection or occlusion. Soft tissues: Normal. No significant soft tissue swelling. Bones/joints: No acute fracture. CT/CT angio headneck* [id number] IMPRESSION: No large vessel stenosis or occlusion. IMPRESSION: Moderate right ICA stenosis. REFERENCES: NASCET CRITERIA. The degree of stenosis in the cervical segment of the internal carotid artery is based on NASCET criteria. Normal is no stenosis. Mild is less than 50% stenosis. Moderate is 50-69% stenosis. Severe is 70% to 99% stenosis. Total occlusion is no detectable patent lumen.
[2023-12-22 07:30] LABS: INR 1.13 (0.8-1.2)
[2023-12-22 07:31] LABS: Partial Thromboplastin Time 30.7 SECONDS (23.9-36.7)
[2023-12-22] MEDS: FUROsemide 10 mg/mL SDV 4mL 40 MG IVP (07:33)
[2023-12-22] MEDS: iohexol 350 mg/mL 500 mL Btl (per mL) IV (07:53)
--- NOTE | 2023-12-22 08:14 | ECG_ITS ---
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 Measurements Intervals [place] Rate: 50 P: 73 MD: 186 QRS: 93 QRSD: 105 T: 41 QT: 460 QTc: 423 Interpretive Statements SINUS BRADYCARDIA BORDERLINE RIGHT AXIS DEVIATION [QRS AXIS > 90] Compared to ECG 12/22/2023 06:15:28 Sinus rhythm no longer present Ventricular premature complex(es) no longer present Electronically Signed On 12-22-2023 21:11:10 CDT by Jesusita Rodriguez M.D. [id number]
[2023-12-22 08:51] LABS: Troponin 5 2HR 46.75 ng/L (0-10)
[2023-12-22 08:53] LABS: Troponin 5 2HR Delta -4.25 ABS# (0-10)
[2023-12-22 08:55] LABS: Ammonia 22 umol/L (11-51)
[2023-12-22 11:40] LABS: Thyroid Stimulating Hormone 1.69 uIU/mL (0.27-4.20)
[2023-12-22 13:04] LABS: Troponin 5 6HR 44.31 ng/L (0-10)
[2023-12-22 13:08] LABS: Troponin 5 6HR Delta -6.69 ng/L (0-12)
--- NOTE | 2023-12-22 13:27 | ECG_ITS ---
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 Measurements Intervals [place] Rate: 52 P: 76 ND: 180 QRS: 97 QRSD: 114 T: 55 QT: 444 QTc: 415 Interpretive Statements SINUS BRADYCARDIA BORDERLINE RIGHT AXIS DEVIATION [QRS AXIS > 90] MODERATE INTRAVENTRICULAR CONDUCTION DELAY [105+ ms QRS DURATION, 80+ ms Q/S IN V1/V2, NO Q AND 60+ ms R IN I/aVL/V5/V6] Compared to ECG 12/22/2023 07:23:00 Intraventricular conduction delay now present Electronically Signed On 12-22-2023 21:11:59 CDT by Jesusita Rodriguez M.D. [id number]
--- NOTE | 2023-12-22 14:12 | P.HP_ITS ---
Providers/Chief Complaint 2 Admitting Physician: Nigel Peterson Primary Care Provider: Emanuel Shaffer MD Chief Complaint: AMS History of Present Illness With history of schizophrenia, hallucinations, usually nonverbal speaking 1-2 words, detention resident, previously using a walker to ambulate, was brought into emergency room due to altered mental status, with decreased level of consciousness. Was observed to have a tonic-clonic seizure during last ER visit at which time she was profoundly bradycardic, heart rates in 120s, hypothermic, was transferred to [facility]. Seizure was not witnessed this time, and so far has not had seizure in the car. He is noted to have bradycardia, heart rates in the 50s, but occasionally dropping down to 40. Maintaining blood pressure, mildly hypothermic 97.4. He is not communicating, does slowly open her eyes to voice, shoulder touch. Patient reportedly pulled out her IV, was also sitting up in bed at 1 point. Reacts to painful stimuli bilaterally equally. Does not appear to have obvious focal abnormality. Review of Systems 2 General: Reports: ROS unobtainable due to mental status Medications/Allergies Home Medications Medication Instructions Recorded Confirmed Last Taken Type acetaminophen 325 mg tablet 325 mg PO QID PRN pain/fever 10/27/23 10/27/23 10/26/23 09:56 History pantoprazole 40 mg tablet,delayed 40 mg PO DAILY 10/27/23 10/27/23 10/26/23 07:00 History release (Protonix) polyethylene glycol 3350 17 gram 17 g PO DAILY 10/27/23 10/27/23 10/26/23 07:00 History oral powder packet risperidone 0.5 mg tablet 0.5 mg PO 08,18 10/27/23 10/27/23 10/26/23 08:00 History (Risperdal) tamsulosin 0.4 mg capsule 0.4 mg PO DAILY 10/27/23 10/27/23 10/25/23 17:00 History amlodipine 10 mg tablet 10 mg PO DAILY #30 tabs 10/29/23 Unknown Rx furosemide 40 mg tablet 40 mg PO DAILY #30 tabs 10/29/23 10/27/23 10/26/23 13:00 Rx lactulose 10 gram/15 mL oral 10 g (15 mL) PO DAILY PRN 10/29/23 Unknown Rx solution constipation #473 mL metoprolol tartrate 25 mg tablet 25 mg PO BID #60 tabs 10/29/23 Unknown Rx olanzapine 5 mg tablet (Zyprexa) 5 mg PO BEDTIME PRN agitation #30 10/29/23 Unknown Rx tabs Allergies Allergy/AdvReac Type Severity Reaction Status Date / Time Penicillins Allergy Unknown Verified 11/08/21 20:31 quetiapine [From Seroquel] Allergy Unknown Verified 11/08/21 20:31 PFSH Acute 2 PFSH: Medical History Right sided weakness Acute renal failure Aspiration pneumonia Hyponatremia Altered mental status Hyperkalemia Pressure ulcer HTN (hypertension) Dementia Vitals/I&O/Wt Last Vital Signs Temp 97.4 F L 12/22/23 06:09 Pulse 55 L 12/22/23 13:30 Resp 16 12/22/23 13:30 BP 157/72 12/22/23 13:30 Pulse Ox 99 12/22/23 11:35 O2 Del Method Nasal Cannula 12/22/23 06:09 FiO2 35 12/22/23 11:15 Weight last 48 hrs Weight 116.573 kg Physical Exam 2 Const: COMMON NORMALS: negative for alert GENERAL APPEARANCE: not cooperative NUTRITIONAL APPEARANCE: obese HENMT: COMMON NORMALS: oropharynx normal Neck/C-Spine: COMMON NORMALS: no JVD Resp: COMMON NORMALS: normal respiratory effort and clear to auscultation bilaterally AUSCULTATION: clear to auscultation bilaterally Cardio: COMMON NORMALS: no JVD, regular rhythm, S1 normal heart sound present, S2 normal heart sound present and No murmurs present (Cardio) RHYTHM: regular rhythm HEART SOUNDS: S1 normal heart sound present and S2 normal heart sound present GI: COMMON NORMALS: Normal to inspection, nondistended, normoactive bowel sounds present, Soft to palpation and non-tender PALPATION: Yes Soft to palpation Extremity: COMMON NORMALS: no joint enlargement and no pedal edema Neuro: COMMON NORMALS: moves all extremities SENSORIUM/ORIENTATION: No alert OTHER: No myoclonus. Without noted any significant tremor. Withdraws to pain bilaterally. No obvious focal abnormality. Does not follow directions. Skin: COMMON NORMALS: no rashes or lesions noted GENERAL SKIN EXAM: no rashes or lesions noted Data 12/22/23 06:00 12/22/23 06:00 Micro: Microbiology 12/22/23 06:34 Blood Culture - Preliminary Blood SPECIMEN COLLECTED 12/22/23 06:28 Blood Culture - Preliminary Blood SPECIMEN COLLECTED A&P Assessment and plan (1) Acute encephalopathy: Acute encephalopathy this morning. Previously was an episode of tonic-clonic seizure during last presentation to ER here on the 13th per history obtained from her RN, no seizure witnessed this time. She is turning her head, withdrawing to pain bilaterally, opens her eyes to voice and touch, does not respond. This appears somewhat worse compared to usual where she is able to speak several words, used to ambulate with a walker. Possible postictal period, she did show some mild improvement in responsiveness in the ER compared to admission. Reviewed vitals, CBC, INR, ABG, CMP, troponin, NT proBNP, procalcitonin, TSH, UA, chest x-ray, head CT, abdomen pelvis CT, head and neck CTA, ER note, discussed with ER provider. Does not have any obvious metabolic abnormality, unremarkable glucose, does have some chronic kidney disease, creatinine 1.6. Electrolytes are okay. TSH is okay. UA not suggestive of infection. Chest x-ray with mild opacity of the lateral left lung base. He is otherwise afebrile, without leukocytosis. Will obtain respiratory viral panel, empiric coverage for possible pneumonia. Ceftriaxone, azithromycin, reviewed QTc 415. Is noted to have sinus bradycardia as below. For now we will hold her psychiatric medications given possible oversedation/possible medication toxicity. Currently unable to take anything safely by mouth will keep n.p.o. for now, reassess. (2) Sinus bradycardia: Is noted to have sinus bradycardia 40s-50s, but as low as 40. During last admission severe bradycardia in 20s, hypothermic. TSH reviewed and is normal. Hold metoprolol. Reassess heart rates, monitor on telemetry. Monitor for any possible severe bradycardia episodes possibly contributing to/causing her condition. Plan Recent seizure: 04 without recurrence. Monitor with seizure precautions. Attestations 2 Medical Necessity Statement*: Place in observation for additional assessment and management of acute encephalopathy. Diagnoses Acute encephalopathy G93.40 Sinus bradycardia R00.1
[2023-12-22] MEDS: enoxaparin 40 mg/0.4 mL Syringe SUBCUT (14:53)
[2023-12-22] MEDS: levofloxacin-dextrose 5 % 750 MG/150 ML PREMIX 100 MG IV (15:57)
[2023-12-22 17:54] LABS: Adenovirus Not Detected (NOT DETECT); Chlamydia Pneumoniae Not Detected (NOT DETECT); Coronavirus 229E,HKU1,NL63,OC4 Not Detected (NOT DETECT); Human Metapneumovirus Not Detected (NOT DETECT); Human Rhinovirus/Enterovirus Not Detected (NOT DETECT); Influenza A Not Detected (NOT DETECT); Influenza A H1 Not Detected (NOT DETECT); Influenza A H1-2009 Not Detected (NOT DETECT); Influenza A H3 Not Detected (NOT DETECT); Influenza B Not Detected (NOT DETECT); Mycoplasma Pneumoniae Not Detected (NOT DETECT); Parainfluenza Virus Type 1 Not Detected (NOT DETECT); Parainfluenza Virus Type 2 Not Detected (NOT DETECT); Parainfluenza Virus Type 3 Not Detected (NOT DETECT); Parainfluenza Virus Type 4 Not Detected (NOT DETECT); Respiratory Syncytial Virus A Not Detected (NOT DETECT); Respiratory Syncytial Virus B Not Detected (NOT DETECT); SARS-COV-2 Not Detected (NOT DETECT)
[2023-12-23] VITALS (27 sets, daily range): BP systolic 91–159; BP diastolic 48–85; PULSE 53–73; RESP 13–22; TEMP 36.3–36.8; O2SAT 79–100; BMI 46.0
[2023-12-23 05:00] LABS: Basophils % 1.2 %; Eosinophils # 0.2 10^3/uL (0.0-0.8); Eosinophils % 5.3 %; Hematocrit 29.4 % (36-47); Lymphocytes # 0.7 10^3/uL (0.8-4.8); Lymphocytes % 19.4 %; Mean Corpuscular HGB Conc 29.9 g/dL (30-55); Mean Corpuscular Hemoglobin 28.9 pg (27-33); Mean Corpuscular Volume 96.4 fl (85-98); Mean Platelet Volume 10.3 fL (7.4-10.4); Monocytes # 0.3 10^3/uL (0.2-0.9); Monocytes % 8.8 %; Neutrophils # 2.22 10^3/uL (1.8-7.7); Nucleated Red Blood Cells % 0 %; Platelet Count 290 10^3/cmm (157-399); Red Blood Count 3.05 10^6/uL (3.85-5.65); Red Cell Distribution Width 17.1 % (12.1-15.1); White Blood Count 3.41 10^3/uL (3.29-11.43)
[2023-12-23 05:20] LABS: Alanine Aminotransferase 14 U/L (0-33); Albumin Level 3.3 g/dL (3.5-5.2); Alkaline Phosphatase 154 U/L (35-105); Aspartate Amino Transferase 14 U/L (0-32); Blood Urea Nitrogen 34 mg/dL (8-23); Calcium 8.7 mg/dL (8.5-10.5); Carbon Dioxide 36 mmol/L (22-29); Chloride 97 mmol/L (98-107); Creatinine Clr Calc Pharmacy 36.3239; Glucose 87 mg/dL (65-115); Magnesium 2.1 mg/dL (1.7-2.3); Osmolality Calculated 301 mOsm/kg (285-295); Phosphorus 5.2 mg/dL (2.5-4.5); Sodium 142 mmol/L (136-145); Total Bilirubin 0.4 mg/dL (0.15-1.2); Total Protein 6.3 g/dL (6.6-8.7)
[2023-12-23 05:23] LABS: Anion Gap 13.6 (5-19); Potassium 4.6 mmol/L (3.5-5.1)
--- NOTE | 2023-12-23 11:56 | PC.SOCIAL ---
IMM Update Pg. 2 of IMM updated. Copy provided.
[2023-12-23] MEDS: enoxaparin 40 mg/0.4 mL Syringe SUBCUT (15:53)
--- NOTE | 2023-12-23 16:24 | PC.OT ---
OT EVALUATION ATTEMPTED; PATIENT IS SLEEPING SOUNDLY AND DOES NOT AWAKEN; WILL ATTEMPT AGAIN AT A LATER TIME
--- NOTE | 2023-12-23 20:14 | P.PN_ITS ---
Subjective 2 Subjective: He is definitely more alert today, but not answering any questions, does make eye contact, appears to attempt to vocalize something, but not without any comprehensible words this morning. Vitals/I&O/Wt Last Vital Signs Temp 97.5 F L 12/23/23 16:00 Pulse 59 L 12/23/23 16:00 Resp 18 12/23/23 16:00 BP 118/70 12/23/23 16:00 Pulse Ox 96 12/23/23 16:00 O2 Del Method Nasal Cannula 12/23/23 12:35 O2 Flow Rate 2 12/23/23 08:49 FiO2 35 12/22/23 11:15 12/23/23 12/23/23 12/23/23 06:59 14:59 22:59 Output Total 500 / 1000 Balance -500 / -850 Weight last 48 hrs Weight 118.07 kg Weight 118.07 kg Weight 116.573 kg Weight 116.573 kg Physical Exam 2 Const: COMMON NORMALS: patient oriented x3; negative for alert GENERAL APPEARANCE: not cooperative NUTRITIONAL APPEARANCE: obese HENMT: COMMON NORMALS: oropharynx normal Neck/C-Spine: COMMON NORMALS: no JVD Resp: COMMON NORMALS: normal respiratory effort and clear to auscultation bilaterally AUSCULTATION: clear to auscultation bilaterally Cardio: COMMON NORMALS: no JVD, regular rhythm, S1 normal heart sound present, S2 normal heart sound present and No murmurs present (Cardio) RHYTHM: regular rhythm HEART SOUNDS: S1 normal heart sound present and S2 normal heart sound present GI: COMMON NORMALS: Normal to inspection, nondistended, normoactive bowel sounds present, Soft to palpation and non-tender PALPATION: Yes Soft to palpation Extremity: COMMON NORMALS: no joint enlargement and no pedal edema Neuro: COMMON NORMALS: patient oriented x3 and moves all extremities S ENSORIUM/ORIENTATION: No alert OTHER: No myoclonus. Without noted any significant tremor. Withdraws to pain bilaterally. No obvious focal abnormality. Does not follow directions. Skin: COMMON NORMALS: no rashes or lesions noted GENERAL SKIN EXAM: no rashes or lesions noted Data 12/23/23 03:49 12/23/23 03:49 Micro: Microbiology 12/22/23 06:34 Blood Culture - Preliminary Blood NEGATIVE TO DATE 12/22/23 06:28 Blood Culture - Preliminary Blood NEGATIVE TO DATE A&P Assessment and plan (1) Acute encephalopathy: Acute encephalopathy with some improvement. She is definitely more alert, making eye contact, at to communicate, although still incomprehensible. History obtained from nursing staff. Requested speech therapy eval. Aspiration precautions. Discussed with speech therapist. Continue seizure precautions. Bradycardia is somewhat better, heart rates in the 50s. Concern for possibility of anoxic injury with possible bradycardia episodes at residential. So far without seizure observed. PT, OT assessment. Reassess mental status. Discussed with case management social worker. Reviewed vitals, CBC, CMP, magnesium, TSH, respiratory viral panel Continue treatment of possibly mild pneumonia. Possible aspiration pneumonitis versus pneumonia. Continues on Levaquin, risk of QT prolongation with antipsychotics, bradycardia. Reassess EKG. For now we will hold her psychiatric medications given possible oversedation/possible medication toxicity. Currently unable to take anything safely by mouth will keep n.p.o. for now, reassess. (2) Sinus bradycardia: Today with some improvement. Continue to hold metoprolol. Is noted to have sinus bradycardia 40s-50s, but as low as 40. During last admission severe bradycardia in 20s, hypothermic. TSH reviewed and is normal. Hold metoprolol. Reassess heart rates, monitor on telemetry. Monitor for any possible severe bradycardia episodes possibly contributing to/causing her condition. Plan Recent seizure: 04 without recurrence. Monitor with seizure precautions. Attestations 2 Medical Necessity Statement*: Requiring admission of 40 minutes for assessment and management of acute encephalopathy. and High MDM includes amount and/or complexity of data reviewed/ordered [ resulted lab(s)/test(s), ordered lab(s)/test(s), independent historian and other healthcare professional discussion] and described risk of complication, morbidity or mortality of management as documented Diagnoses Acute encephalopathy G93.40 Sinus bradycardia R00.1
[2023-12-23 22:29] LABS: Bacillus cereus group Not Detected (NOT DETECT); Bacillus subtillis group Not Detected (NOT DETECT); Corynebacterium Not Detected (NOT DETECT); Cutibacterium acnes (P.acnes) Not Detected (NOT DETECT); Enterococcus Not Detected (NOT DETECT); Enterococcus faecalis Not Detected (NOT DETECT); Enterococcus faecium Not Detected (NOT DETECT); Lactobacillus species Not Detected (NOT DETECT); Listeria Not Detected (NOT DETECT); Listeria monocytogenes Not Detected (NOT DETECT); Micrococcus Not Detected (NOT DETECT); Pan Candida Not Detected (NOT DETECT); Pan Gram-Negative Not Detected (NOT DETECT); Staphylococcus epidermidis Not Detected (NOT DETECT); Staphylococcus lugdunensis Not Detected (NOT DETECT); Staphylococcus species Not Detected (NOT DETECT); Streptococcus agalactiae Not Detected (NOT DETECT); Streptococcus anginosus group Not Detected (NOT DETECT); Streptococcus pneumoniae Not Detected (NOT DETECT); Streptococcus pyogenes Not Detected (NOT DETECT); Streptococcus species Not Detected (NOT DETECT)
[2023-12-24] VITALS: BP 143/56; PULSE 61; RESP 19; TEMP 36.9; O2SAT 93
[2023-12-24 04:00] VITALS: BP 147/65; PULSE 68; RESP 18; TEMP 37; O2SAT 93
[2023-12-24 05:14] LABS: Basophils # 0.1 10^3/uL (0.0-0.1); Basophils % 1.5 %; Eosinophils # 0.2 10^3/uL (0.0-0.8); Eosinophils % 6.3 %; Lymphocytes # 0.9 10^3/uL (0.8-4.8); Lymphocytes % 26.3 %; Mean Corpuscular Hemoglobin 29.3 pg (27-33); Mean Corpuscular Volume 94.5 fl (85-98); Mean Platelet Volume 9.6 fL (7.4-10.4); Monocytes # 0.3 10^3/uL (0.2-0.9); Monocytes % 8.1 %; Neutrophils # 1.93 10^3/uL (1.8-7.7); Neutrophils % 57.5 %; Nucleated Red Blood Cells % 0 %; Platelet Count 268 10^3/cmm (157-399); Red Blood Count 3.28 10^6/uL (3.85-5.65); Red Cell Distribution Width 16.5 % (12.1-15.1); White Blood Count 3.35 10^3/uL (3.29-11.43)
[2023-12-24 05:38] LABS: Alanine Aminotransferase 13 U/L (0-33); Albumin Level 3.4 g/dL (3.5-5.2); Alkaline Phosphatase 145 U/L (35-105); Aspartate Amino Transferase 13 U/L (0-32); Blood Urea Nitrogen 27 mg/dL (8-23); Calcium 8.9 mg/dL (8.5-10.5); Carbon Dioxide 36 mmol/L (22-29); Chloride 96 mmol/L (98-107); Creatinine Clr Calc Pharmacy 38.8901; Globulin 3.4 g/dL (1.3-4.6); Glucose 106 mg/dL (65-115); Osmolality Calculated 296 mOsm/kg (285-295); Sodium 140 mmol/L (136-145); Total Bilirubin 0.5 mg/dL (0.15-1.2); Total Protein 6.8 g/dL (6.6-8.7)
[2023-12-24 07:27] VITALS: BP 160/72; PULSE 61; RESP 17; TEMP 36.6; O2SAT 92
--- NOTE | 2023-12-24 09:23 | PC.CHAP ---
Pastoral Care Encounter/Spiritual Assessment Type of Contact [] Declined sap solution manager consultant visit [] Patient/Family/Request visit [] Outpatient visit [] Follow-up visit [] Physician referral [] Code/Alert [x] Routine visit [] Staff referral [] Actively dying [] Patient sleeping [] Family support [] [] Out of room [] Palliative care [] [] Receiving care in room [] Pre-surgical visit [] Trauma [] Long length of stay [] ICU visit [] Other: Relational/Emotional Strength [] Patient feels connected with others/family/visitors/staff [x] Distress [] Loneliness/isolation [] Abandonment Spirituality of Patient [] Person of Brenda [] Attends Quaker of their Brenda [x] Believes in Prayer [] Reads Bible or Anglican materials [] There are Spiritual issues to be addressed Inspector Dials Interventions [x] Prayer [] Active listening [x] Non-anxious presence [x] Spiritual/emotional support [] Crisis/trauma care [] Spiritual counseling [] Bereavement support [] Provided bereavement packet [] Provided Bible/devotional materials [] Provided toy/stuffed animal, coloring book to patient or family member [] Provided Communion [] Anointing/[place] [] Salvation [x] Completed spiritual assessment [] Other: Impact on Illness or Injury [] Angry [x] Fearful [x] Anxious [] Often cries [] Exhaustion [] Unable to work [] Unable to attend hindu [] Unable to walk/stand [] Unable to read [] Unable to drive [] Unable to eat/drink [] Unable to sleep [] Unable to be with family [] Patient intubated [] Other: Summary Time spent with patient
--- NOTE | 2023-12-24 10:27 | ECG_ITS ---
[facility] Test Date: 2023-12-24 Pat Name: Tammi Poole Department: Room: 278 Gender: Female Icu Staff Nurse: : [id number] Requested By: Nigel Peterson Order Number: [id number] Reading MD: Jesusita Rodriguez M.D. Measurements Intervals [place] Rate: 63 P: 62 OH: 170 QRS: 79 QRSD: 108 T: 36 QT: 414 QTc: 427 Interpretive Statements SINUS RHYTHM WITH OCCASIONAL VENTRICULAR PREMATURE COMPLEXES Compared to ECG 12/22/2023 13:27:56 Ventricular premature complex(es) now present Sinus bradycardia no longer present Intraventricular conduction delay no longer present Electronically Signed On 12-24-2023 22:13:08 CDT by Jesusita Rodriguez M.D. [id number]
[2023-12-24 12:18] VITALS: BP 160/72; PULSE 61; RESP 17; TEMP 36.6; O2SAT 92
--- NOTE | 2023-12-24 12:44 | P.DS_ITS ---
Discharge Providers Date of Admission: 12/22/23 11:08 Date of Discharge: December 24, 2023 Attending Provider at Admission: Nigel Peterson Attending Provider at Discharge: Nigel Peterson Primary Care Provider: Emanuel Shaffer MD Diagnoses at Discharge Discharge Diagnosis (1) Acute encephalopathy: Status: Acute (2) Sinus bradycardia: Status: Acute Reason for Visit Reason for Visit: AMS Brief History: With history of schizophrenia, hallucinations, usually nonverbal speaking 1-2 words, halfway resident, previously using a walker to ambulate, was brought into emergency room due to altered mental status, with decreased level of consciousness. Was observed to have a tonic-clonic seizure during last ER visit at which time she was profoundly bradycardic, heart rates in 120s, hypothermic, was transferred to [facility]. Seizure was not witnessed this time, and so far has not had seizure in the car. He is noted to have bradycardia, heart rates in the 50s, but occasionally dropping down to 40. Maintaining blood pressure, mildly hypothermic 97.4. He is not communicating, does slowly open her eyes to voice, shoulder touch. Patient reportedly pulled out her IV, was also sitting up in bed at 1 point. Reacts to painful stimuli bilaterally equally. Does not appear to have obvious focal abnormality. Hospital Course Hospital Course She was placed on seizure precautions, was not found to have any tonic-clonic activity while in the hospital. She was noted to be bradycardic on presentation as noted, metoprolol was held. Monitored on telemetry. Heart rate gradually improved into the 50s and 60s. Mental status showed improvement yesterday but still somewhat sluggish responsiveness, today she is awake and alert, also makes eye contact and make better attempts at communicating. Nonverbal at baseline, but does appear to say a word here there. When asked today how she is doing, stating all right . Hypothermia has resolved. No additional metabolic abnormality. Urinalysis not suggestive of UTI. Chest x-ray not suggestive of pneumonia, mild opacity at the lateral left lung base, some possibility of as piration pneumonitis, currently remaining afebrile, without leukocytosis. Without cough or dyspnea. Is noted to have some dysphagia, continue dysphagia level 4 diet, extremely thick/pur?ed, with moderately thick liquids. Follow-up with EEG and with neurology due to seizure on prior presentation, seizure at that time suspected possibly secondary to severe bradycardia with hypotension. Metoprolol was discontinued. Discussed with her guardian. Physical Exam Narrative: Attempts to speak a couple words. States she is 'alright' and not in pain. Const: COMMON NORMALS: patient oriented x3; negative for alert GENERAL APPEARANCE: not cooperative NUTRITIONAL APPEARANCE: obese HENMT: COMMON NORMALS: oropharynx normal Neck/C-Spine: COMMON NORMALS: no JVD Resp: COMMON NORMALS: normal respiratory effort and clear to auscultation bilaterally AUSCULTATION: clear to auscultation bilaterally Cardio: COMMON NORMALS: no JVD, regular rhythm, S1 normal heart sound present, S2 normal heart sound present and No murmurs present (Cardio) RHYTHM: regular rhythm HEART SOUNDS: S1 normal heart sound present and S2 normal heart sound present GI: COMMON NORMALS: Normal to inspection, nondistended, normoactive bowel sounds present, Soft to palpation and non-tender PALPATION: Yes Soft to palpation Extremity: COMMON NORMALS: no joint enlargement and no pedal edema Neuro: COMMON NORMALS: patient oriented x3 and moves all extremities SENSORIUM/ORIENTATION: No alert OTHER: No myoclonus. Without noted any significant tremor. No obvious focal abnormality. Does not follow directions. Skin: COMMON NORMALS: no rashes or lesions noted GENERAL SKIN EXAM: no rashes or lesions noted Discharge Data Studies Completed and Pending Completed Studies During Hospitalization Category Date Time Status CT abdomen pelvis wo con [id number] Stat Cat Scan 12/22/23 06:[address] head wo con* [id number] Stat Cat Scan 12/22/23 06:14 Completed CTA head neck [CT angio headneck* [id number]] Stat Cat Scan 12/22/23 07:19 Completed XR chest 1V portable [id number] Stat Exams 12/22/23 06:14 Completed Pending at discharge Category Date Time Status Blood Culture Stat Lab 12/22/23 06:34 Results Radiology Impressions Chest X-Ray 12/22/23 06:14 IMPRESSION: Mild opacity at the lateral left lung base. Head CT 12/22/23 06:14 IMPRESSION: No acute intracranial abnormality. Abdomen/Pelvis CT 12/22/23 06:25 IMPRESSION: No acute subdiaphragmatic pathology. Head/Neck CTA 12/22/23 07:19 IMPRESSION: No large vessel stenosis or occlusion. IMPRESSION: Moderate right ICA stenosis. REFERENCES: NASCET CRITERIA. The degree of stenosis in the cervical segment of the internal carotid artery is based on NASCET criteria. Normal is no stenosis. Mild is less than 50% stenosis. Moderate is 50-69% stenosis. Severe is 70% to 99% stenosis. Total occlusion is no detectable patent lumen. Laboratory Results WBC 3.35 10^3/uL (3.29-11.43) 12/24/23 05:02 RBC 3.28 10^6/uL (3.85-5.65) L 12/24/23 05:02 Hgb 9.60 g/dL (11.27-16.99) L 12/24/23 05:02 Hct 31.0 % (36-47) L 12/24/23 05:02 MCV 94.5 fl (85-98) 12/24/23 05:02 MCH 29.3 pg (27-33) 12/24/23 05:02 MCHC 31.0 g/dL (30-55) 12/24/23 05:02 RDW 16.5 % (12.1-15.1) H 12/24/23 05:02 Plt Count 268 10^3/cmm (157-399) 12/24/23 05:02 MPV 9.6 fL (7.4-10.4) 12/24/23 05:02 Neut % (Auto) 57.5 % 12/24/23 05:02 Lymph % (Auto) 26.3 % 12/24/23 05:02 Banner % (Auto) 8.1 % 12/24/23 05:02 Eos % (Auto) 6.3 % 12/24/23 05:02 Baso % (Auto) 1.5 % 12/24/23 05:02 Neut # (Auto) 1.93 10^3/uL (1.8-7.7) 12/24/23 05:02 Lymph # (Auto) 0.9 10^3/uL (0.8-4.8) 12/24/23 05:02 Banner # (Auto) 0.3 10^3/uL (0.2-0.9) 12/24/23 05:02 Eos # (Auto) 0.2 10^3/uL (0.0-0.8) 12/24/23 05:02 Baso # (Auto) 0.1 10^3/uL (0.0-0.1) 12/24/23 05:02 Nucleated RBC % (auto) 0 % 12/24/23 05:02 Nucleated RBCs # 0.0 /100WBC 12/24/23 05:02 PT 14.90 SECONDS (12.1-14.9) 12/22/23 06:28 INR 1.13 (0.8-1.2) 12/22/23 06: APTT 30.7 SECONDS (23.9-36.7) 12/22/23 06:28 Specimen Type Arterial 12/22/23 06:41 Sample Site Radial, left 12/22/23 06:41 ABG pH 7.41 (7.35-7.45) 12/22/23 06:41 ABG pCO2 59.0 mmHg (35-45) H 12/22/23 06:41 ABG pO2 66.6 mmHg (80.0-100.0) L 12/22/23 06:41 ABG HCO3 37.4 mmol/L (22-26) H 12/22/23 06:41 ABG O2 Saturation 93.6 12/22/23 06:41 ABG Base Excess 11.3 mmol/L (-2.0-2.0) H 12/22/23 06:41 Lukasz Test Pos 12/22/23 06:41 A-a O2 Gradient 1.6 mmHg (5-10) L 12/22/23 06:41 Hematocrit 27.5 % (37-47) L 12/22/23 06:41 Hgb O2 Saturation 91.7 % (95-100) L 12/22/23 06:41 Carboxyhemoglobin 1.8 %THgb (0.4-20.1) 12/22/23 06:41 Methemoglobin 0.2 % (0.4-1.5) L 12/22/23 06:41 Total Hemoglobin 9.0 g/dL (12-16) L 12/22/23 06:41 Sodium 139.0 mmol/L (131-143) 12/22/23 06:41 Potassium 4.1 mmol/L (3.5-5.0) 12/22/23 06:41 Glucose 93.0 mg/dL (70-115) 12/22/23 06:41 Ionized Calcium 1.2 mmol/L (1.1-1.4) 12/22/23 06:41 O2 Delivery Device Nc 12/22/23 06:41 O2 Liters/Min 4.0 % 12/22/23 06:41 Terry Cloth Cutter Hand ID [id number] 12/22/23 06:41 Sodium 140 mmol/L (136-145) 12/24/23 05:02 Potassium 4.0 mmol/L (3.5-5.1) 12/24/23 05:02 Chloride 96 mmol/L (98-107) L 12/24/23 05:02 Carbon Dioxide 36 mmol/L (22-29) H 12/24/23 05:02 Anion Gap 12.0 (5-19) 12/24/23 05:02 BUN 27 mg/dL (8-23) H 12/24/23 05:02 Creatinine 1.6 mg/dL (0.5-0.9) H 12/24/23 05:02 GFR Calculation Not Reportable 12/24/23 05:02 Glucose 106 mg/dL (65-115) 12/24/23 05:02 Calculated Osmolality 296 mOsm/kg (285-295) H 12/24/23 05:02 Lactic Acid 0.8 mmol/L (0.5-2.2) 12/22/23 06:00 Calcium 8.9 mg/dL (8.5-10.5) 12/24/23 05:02 Phosphorus 5.2 mg/dL (2.5-4.5) H 12/23/23 03:49 Magnesium 2.1 mg/dL (1.7-2.3) 12/23/23 03:49 Total Bilirubin 0.5 mg/dL (0.15-1.2) 12/24/23 05:02 AST 13 U/L (0-32) 12/24/23 05:02 ALT 13 U/L (0-33) 12/24/23 05:02 Alkaline Phosphatase 145 U/L (35-105) H 12/24/23 05:02 Ammonia 22 umol/L (11-51) 12/22/23 08:23 Troponin T Baseline 51 ng/L (0-10) H 12/22/23 06:00 Troponin T 120 Minute 46.75 ng/L (0-10) H 12/22/23 08:20 Delta Troponin T -4.25 ABS# (0-10) L 12/22/23 08:20 Troponin T Hi Sens 6Hr 44.31 ng/L (0-10) H 12/22/23 12:32 Troponin T Hi Sens 6Hr Delta -6.69 ng/L (0-12) L 12/22/23 12:32 NT-Pro-B Natriuret Pep 1995 pg/mL (0-125) H 12/22/23 06:00 Total Protein 6.8 g/dL (6.6-8.7) 12/24/23 05:02 Albumin 3.4 g/dL (3.5-5.2) L 12/24/23 05:02 Globulin 3.4 g/dL (1.3-4.6) 12/24/23 05:02 Procalcitonin 0.10 ng/mL (0-0.5) 12/22/23 06:00 TSH 1.69 uIU/mL (0.27-4.20) 12/22/23 06:00 Urine Color Yellow (Yellow) 12/22/23 06:30 Urine Appearance Clear (CLEAR) 12/22/23 06:30 Urine pH 6 (5-7) 12/22/23 06:30 Ur Specific [place] 1.015 (1.005-1.030) 12/22/23 06:30 Urine Protein Trace (Negative) 12/22/23 06:30 Urine Glucose (UA) Norm (Normal) 12/22/23 06:30 Urine Ketones Negative (Negative) 12/22/23 06:30 Urine Blood Neg (Negative) 12/22/23 06:30 Urine Nitrate Negative (Negative) 12/22/23 06:30 Urine Bilirubin Neg (Negative) 12/22/23 06:30 Urine Urobilinogen Norm mg/dL (Negative) 12/22/23 06:30 Ur Leukocyte Esterase Negative (Negative) 12/22/23 06:30 Urine RBC None /hpf (0-2) 12/22/23 06:30 Urine WBC Rare /hpf (0-5) 12/22/23 06:30 Ur Squamous Epith Cells 0-4 /hpf (0-5) H 12/22/23 06:30 Amorphous Sediment Not Reportable 12/22/23 06:30 Urine Bacteria Trace /hpf (NONE) 12/22/23 06:30 Adenovirus (PCR) Not detected (NOT DETECT) 12/22/23 15:45 C. pneumoniae DNA (PCR) Not detected (NOT DETECT) 12/22/23 15:45 Coronavirus 229E (PCR) Not detected (NOT DETECT) 12/22/23 15:45 Human Metapneumovir PCR Not detected (NOT DETECT) 12/22/23 15:45 Influenza A (H1) PCR Not detected (NOT DETECT) 12/22/23 15:45 Influ A (H1/09) PCR Not detected (NOT DETECT) 12/22/23 15:45 Influenza A (H3) PCR Not detected (NOT DETECT) 12/22/23 15:45 Influenza Type A (PCR) Not detected (NOT DETECT) 12/22/23 15:45 Influenza Type B (PCR) Not detected (NOT DETECT) 12/22/23 15:45 M. pneumoniae (PCR) Not detected (NOT DETECT) 12/22/23 15:45 Parainfluenza 1 (PCR) Not detected (NOT DETECT) 12/22/23 15:45 Parainfluenza 2 (PCR) Not detected (NOT DETECT) 12/22/23 15:45 Parainfluenza 3 (PCR) Not detected (NOT DETECT) 12/22/23 15:45 Parainfluenza 4 (PCR) Not detected (NOT DETECT) 12/22/23 15:45 RSV Type A (PCR) Not detected (NOT DETECT) 12/22/23 15:45 RSV Type B (PCR) Not detected (NOT DETECT) 12/22/23 15:45 Entero/Rhino (PCR) Not detected (NOT DETECT) 12/22/23 15:45 SARS-CoV-2 (PCR) Not detected (NOT DETECT) 12/22/23 15:45 Vitals Last Vital Signs Temp 97.8 F 12/24/23 12:18 Pulse 61 12/24/23 12:18 Resp 17 12/24/23 12:18 BP 160/72 12/24/23 12:18 Pulse Ox 92 12/24/23 12:18 O2 Del Method Nasal Cannula 07/02/24 07:27 O2 Flow Rate 2 12/23/23 20:41 FiO2 35 12/22/23 11:15 Discharge Plan Discharge Patient Disposition: Xfer SNF Condition: Stable Prescriptions: No Action polyethylene glycol 3350 17 gram Powder In Packet 17 g PO DAILY tamsulosin 0.4 mg capsule 0.4 mg PO DAILY pantoprazole [Protonix] 40 mg Tablet,Delayed Release (Dr/Ec) 40 mg PO DAILY acetaminophen 325 mg Tablet 325 mg PO QID PRN (Reason: pain/fever) risperidone [Risperdal] 0.5 mg Tablet 0.5 mg PO 08,18 amlodipine 10 mg tablet 10 mg PO DAILY Qty: 30 2RF metoprolol tartrate 25 mg tablet 25 mg PO BID Qty: 60 0RF lactulose 10 gram/15 mL solution 10 g PO DAILY PRN (Reason: constipation) Qty: 473 0RF furosemide 40 mg Tablet 40 mg PO DAILY Qty: 30 0RF Discharge Orders: Discharge Order (Routine); Ordered 12/24/23 Ordered By: Nigel Peterson Other Ambulatory Orders: EEG electroencephalogram (Routine) Timeframe: 1 Week Facility: [facility] - Location: Neurology Ordered By: Nigel Peterson Referrals: [facility] [Provider Group] (Seizure last admission We have notified your physician's clinic of the need for a follow-up appointment to be scheduled. If you have not heard from them within the next 2 business days, please call them directly. ) [facility] [place] [Outside] Emanuel Shaffer MD [Primary Care Provider] - 12/30/23 10:30 am Discharge Diet: As Directed Patient Instructions: Bradycardia (DC), Altered Mental Status (ED), Encephalopathy (DC), Opioid Safety Discharge Attestations Time Spent in Discharge Care*: greater than 30 min Quality Metrics Clinical Quality Measures [ No reported AMI, CVA or VTE this stay] Coding Level of Care Code 12609 Total time (in minutes) for Discharge: 45 Diagnoses Acute encephalopathy G93.40 Sinus bradycardia R00.1
== END 2023-12-24 12:18 | disposition skilled nursing facility (03) | DRG 72 ==
LOC: ER 06:35 → ICU 14:02 → MEDSURG 12-23 12:02
PROVIDERS: Admitting Provider Internal Medicine; Emergency Provider Family Medicine; PCP Family Medicine; Visit Provider Internal Medicine
DX: G93.40 Encephalopathy, unspecified (principal); R00.1 Bradycardia, unspecified; N18.9 Chronic kidney disease, unspecified; Z86.69 Personal history of other diseases of the nervous system and sense organs; F03.90 Unspecified dementia, unspecified severity, without behavioral disturbance, psychotic disturbance, mood disturbance, and anxiety
CPT/HCPCS: 36415; 70450; 70496; 70498; 71045; 74176; 80051; 80053; 81001; 82140; 82330; 82805; 83605; 83735; 83880; 84100; 84145; 84443; 84484; 85025; 85610; 85730; 87040; 87077; 87150; 87186; 87205; 87486; 87581; 87633; 92523; 92526; 92610; 93005; 94660; 96372; 96374; 96376; 99285; J1650; J1940; J1956; Q9967

== ENCOUNTER 2024-04-12 05:21 | Emergency (ER) | payer MEDICARE, MEDICAID, SELFPAY ==
[2024-04-12] VITALS (8 sets, daily range): BP systolic 0; BP diastolic 0; PULSE 26–65; RESP 13–32; TEMP 35.9; O2SAT 85–90; BMI 60.2
--- NOTE | 2024-04-12 05:26 | XRR_ITS ---
PROCEDURE INFORMATION: Exam: XR Chest Exam date and time: 04/12/2024 5:34 AM Age: 73 years old Clinical indication: Dyspnea and other: Hypoxia/bradycardia; Patient HX: EMS arrival from residential for dyspnea. Upon arrival patient found to be hypoxic with spo2 in the 70s and bradycardic in the 30s. TECHNIQUE: Imaging protocol: Radiologic exam of the chest. Views: 1 view. COMPARISON: CR XR chest 1V portable [id number] 12/22/2023 6:21 AM FINDINGS: Lungs: Low lung volumes with bronchovascular crowding. No focal consolidation. Mild interstitial prominence, unchanged. Pleural spaces: Small left pleural effusion, unchanged. Heart/Mediastinum: No cardiomegaly. Vasculature: Atherosclerotic calcifications of the aortic arch. Bones/joints: Unremarkable. XR/XR chest 1V portable [id number] IMPRESSION: No interval change.
[2024-04-12] MEDS: naloxone 0.4 mg/ml SDV IVP (05:40)
--- NOTE | 2024-04-12 05:41 | PC.NURSE ---
Pt has no response to Narcan.
[2024-04-12 05:52] LABS: Basophils % 0.2 %; Hematocrit 27.4 % (36-47); Lymphocytes # 0.5 10^3/uL (0.8-4.8); Lymphocytes % 9.4 %; Mean Corpuscular HGB Conc 29.6 g/dL (30-55); Mean Corpuscular Hemoglobin 29.9 pg (27-33); Mean Corpuscular Volume 101.1 fl (85-98); Mean Platelet Volume 10.5 fL (7.4-10.4); Monocytes # 0.2 10^3/uL (0.2-0.9); Monocytes % 4.7 %; Neutrophils # 4.15 10^3/uL (1.8-7.7); Neutrophils % 85.3 %; Nucleated Red Blood Cells # 0.3 /100WBC; Platelet Count 115 10^3/cmm (157-399); Red Blood Count 2.71 10^6/uL (3.85-5.65); Red Cell Distribution Width 16.7 % (12.1-15.1); White Blood Count 4.87 10^3/uL (3.29-11.43)
[2024-04-12] MEDS: LORazepam 2 mg/mL INJ 1 mL IVP (06:04)
[2024-04-12] MEDS: morphine 4 mg/mL SDV 1 mL IVP (06:04)
--- NOTE | 2024-04-12 06:10 | ED_ITS ---
HPI - SOB/Dyspnea 2 General: Chief Complaint: Shortness of Breath/Dyspnea Stated Complaint: SOB Time Seen by Provider: 04/12/24 06:07 Source: EMS Mode of arrival: EMS Limitations: altered mental status History of Present Illness: HPI Narrative: 73-year-old female is here from long-term per long-term staff patient became unresponsive having increasing shortness of breath patient is typically on 2 L oxygen at home here patient is responsive but not able to give any history she is hypoxic she is also very bradycardic unable to obtain a blood pressure at this time. Related Data Home Medications Medication Instructions Recorded Confirmed acetaminophen 325 mg tablet 325 mg PO QID PRN pain/fever 10/27/23 12/22/23 pantoprazole 40 mg tablet,delayed 40 mg PO DAILY 10/27/23 12/22/23 release (Protonix) polyethylene glycol 3350 17 gram 17 g PO DAILY 10/27/23 12/22/23 oral powder packet risperidone 0.5 mg tablet 0.5 mg PO ,18 10/27/23 12/22/23 (Risperdal) tamsulosin 0.4 mg capsule 0.4 mg PO DAILY 10/27/23 12/22/23 Previous Rx's Medication Instructions Recorded amlodipine 10 mg tablet 10 mg PO DAILY #30 tabs 10/29/23 furosemide 40 mg tablet 40 mg PO DAILY #30 tabs 10/29/23 lactulose 10 gram/15 mL oral 10 g (15 mL) PO DAILY PRN 10/29/23 solution constipation #473 mL metoprolol tartrate 25 mg tablet 25 mg PO BID #60 tabs 10/29/23 Allergies Allergy/AdvReac Type Severity Reaction Status Date / Time Penicillins Allergy Unknown Verified 11/08/21 20:31 quetiapine [From Seroquel] Allergy Unknown Verified 11/08/21 20:31 Review of Systems 2 General: Reports: ROS unobtainable due to mental status PFSH ED 2 PFSH: Medical History (Updated 04/12/24 @ 07:13 by Lizabeth Smith MD) Seizure Right sided weakness Acute renal failure Aspiration pneumonia Hyponatremia Altered mental status Hyperkalemia Pressure ulcer HTN (hypertension) Dementia Physical Exam 2 Const: COMMON NORMALS: negative for patient oriented x3 GENERAL APPEARANCE: lethargic and ill appearing ORIENTATION/CONSCIOUSNESS: Yes lethargic HENMT: COMMON NORMALS: normocephalic and atraumatic HEAD & SCALP: n ormocephalic and atraumatic Eye: COMMON NORMALS: Equal, round and reactive pupils present and EOMs intact bilaterally PUPIL: Yes Equal, round and reactive pupils present Neck/C-Spine: COMMON NORMALS: full ROM and supple Chest: COMMONS NORMALS: normal inspection of the chest Resp: EFFORT & INSPECTION: Yes labored AUSCULTATION: rales Cardio: RATE: bradycardic GI: COMMON NORMALS: Normal to inspection, nondistended, normoactive bowel sounds present, Soft to palpation, non-tender and no masses PALPATION: Yes Soft to palpation Extremity: COMMON NORMALS: normal to inspection and full ROM Neuro: COMMON NORMALS: negative for patient oriented x3 S ENSORIUM/ORIENTATION: Yes lethargic Psych: COMMON NORMALS: negative for mental status grossly normal Skin: COMMON NORMALS: no rashes or lesions noted and no wounds GENERAL SKIN EXAM: no rashes or lesions noted Course 2 Vital Signs: Vital signs: Vital Signs Temperature 96.6 F L 04/12/24 05:25 Pulse Rate 65 04/12/24 08:14 Respiratory Rate 26 H 04/12/24 08:14 Pulse Oximetry 88 L 04/12/24 08:14 Oxygen Delivery Me thod Nasal Cannula 04/12/24 05:56 Oxygen Flow Rate 4 04/12/24 05:56 MDM - SOB/Dyspnea Medical Decision Making Patient presents here with hyperkalemia is also been bradycardic I did speak to her daughter at length the daughter is wanting her to be on comfort care did not want any further treatment at this time patient is continue to be unresponsive here bradycardic I did speak to the long-term we will discharge back to long-term on comfort care Medical Records I reviewed the patient's medical records. Lab Data I reviewed the patient's lab results. 04/12/24 05:40 04/12/24 05:40 Labs/Radiology: Radiology Impressions Chest X-Ray 04/12/24 05:26 IMPRESSION: No interval change. Laboratory Results WBC 4.87 10^3/uL (3.29-11.43) 04/12/24 05:40 RBC 2.71 10^6/uL (3.85-5.65) L 04/12/24 05:40 Hgb 8.10 g/dL (11.27-16.99) L 04/12/24 05:40 Hct 27.4 % (36-47) L 04/12/24 05:40 MCV 101.1 fl (85-98) H 04/12/24 05:40 MCH 29.9 pg (27-33) 04/12/24 05:40 MCHC 29.6 g/dL (30-55) L 04/12/24 05:40 RDW 16.7 % (12.1-15.1) H 04/12/24 05:40 Plt Count 115 10^3/cmm (157-399) L 04/12/24 05:40 MPV 10.5 fL (7.4-10.4) H 04/12/24 05:40 Neut % (Auto) 85.3 % 04/12/24 05:40 Lymph % (Auto) 9.4 % 04/12/24 05:40 [place] % (Auto) 4.7 % 04/12/24 05:40 Eos % (Auto) 0.0 % 04/12/24 05:40 Baso % (Auto) 0.2 % 04/12/24 05:40 Neut # (Auto) 4.15 10^3/uL (1.8-7.7) 04/12/24 05:40 Lymph # (Auto) 0.5 10^3/uL (0.8-4.8) L 04/12/24 05:40 [place] # (Auto) 0.2 10^3/uL (0.2-0.9) 04/12/24 05:40 Eos # (Auto) 0.0 10^3/uL (0.0-0.8) 04/12/24 05:40 Baso # (Auto) 0.0 10^3/uL (0.0-0.1) 04/12/24 05:40 Nucleated RBC % (auto) 6.0 % 04/12/24 05:40 Nucleated RBCs # 0.3 /100WBC 04/12/24 05:40 Sodium 131 mmol/L (136-145) L 04/12/24 05:40 Potassium 8.7 mmol/L (3.5-5.1) H* 04/12/24 05:40 Chloride 97 mmol/L (98-107) L 04/12/24 05:40 Carbon Dioxide 19 mmol/L (22-29) L 04/12/24 05:40 Anion Gap 23.7 (5-19) H 04/12/24 05:40 BUN 142 mg/dL (8-23) H* D 04/12/24 05:40 Creatinine 4.7 mg/dL (0.5-0.9) H 04/12/24 05:40 GFR Calculation Not Reportable 04/12/24 05:40 Glucose 149 mg/dL (65-115) H 04/12/24 05:40 Calculated Osmolality 321 mOsm/kg (285-295) H 04/12/24 05:40 Calcium 7.7 mg/dL (8.5-10.5) L 04/12/24 05:40 Total Bilirubin 0.3 mg/dL (0.15-1.2) 04/12/24 05:40 AST 86 U/L (0-32) H 04/12/24 05:40 ALT 100 U/L (0-33) H 04/12/24 05:40 Alkaline Phosphatase 288 U/L (35-105) H 04/12/24 05:40 Troponin T Baseline 34 ng/L (0-10) H 04/12/24 05:40 NT-Pro-B Natriuret Pep 6346 pg/mL (0-125) H 04/12/24 05:40 Total Protein 6.8 g/dL (6.6-8.7) 04/12/24 05:40 Albumin 3.4 g/dL (3.5-5.2) L 04/12/24 05:40 Globulin 3.4 g/dL (1.3-4.6) 04/12/24 05:40 All radiology interpretation(s) finalized by discharge Discharge Plan Discharge Patient Disposition: Home Clinical Impression: Hyperkalemia, Bradycardia Condition: Stable Prescriptions: No Action polyethylene glycol 3350 17 gram Powder In Packet 17 g PO DAILY tamsulosin 0.4 mg capsule 0.4 mg PO DAILY pantoprazole [Protonix] 40 mg Tablet,Delayed Release (Dr/Ec) 40 mg PO DAILY acetaminophen 325 mg Tablet 325 mg PO QID PRN (Reason: pain/fever) risperidone [Risperdal] 0.5 mg Tablet 0.5 mg PO amlodipine 10 mg tablet 10 mg PO DAILY Qty: 30 2RF metoprolol tartrate 25 mg tablet 25 mg PO BID Qty: 60 0RF lactulose 10 gram/15 mL solution 10 g PO DAILY PRN (Reason: constipation) Qty: 473 0RF furosemide 40 mg Tablet 40 mg PO DAILY Qty: 30 0RF Discharge Orders: Discharge ED (Routine); Ordered 04/12/24 Ordered By: Lizabeth Smith Referrals: Emanuel Shaffer MD [Primary Care Provider] - Discharge Diet: Advance as tolerated Discharge Activity: Resume usual activity Coding Level of Care Code ED Road [employer]or for [employer] Dl
[2024-04-12 06:15] LABS: Troponin(5th) Baseline 34 ng/L (0-10)
[2024-04-12 06:17] LABS: Alanine Aminotransferase 100 U/L (0-33); Albumin Level 3.4 g/dL (3.5-5.2); Alkaline Phosphatase 288 U/L (35-105); Anion Gap 23.7 (5-19); Aspartate Amino Transferase 86 U/L (0-32); Calcium 7.7 mg/dL (8.5-10.5); Carbon Dioxide 19 mmol/L (22-29); Chloride 97 mmol/L (98-107); Globulin 3.4 g/dL (1.3-4.6); Glucose 149 mg/dL (65-115); NT Pro B Type Natriuretic Pept 6346 pg/mL (0-125); Sodium 131 mmol/L (136-145); Total Bilirubin 0.3 mg/dL (0.15-1.2); Total Protein 6.8 g/dL (6.6-8.7)
[2024-04-12 06:19] LABS: Creatinine Clr Calc Pharmacy 15.6728
[2024-04-12 06:21] LABS: Potassium 8.7 mmol/L (3.5-5.1)
[2024-04-12 06:33] LABS: Blood Urea Nitrogen 142 mg/dL (8-23); Osmolality Calculated 321 mOsm/kg (285-295)
--- NOTE | 2024-04-12 07:06 | ECG_ITS ---
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[employer]: : 1950 Requested By: Favio Yun Order Number: [id number] Reading MD: HUNTER MERRILL Measurements Intervals [place] Rate: 38 P: 266 DC: 142 QRS: 116 QRSD: 141 T: 16 QT: 474 QTc: 379 Interpretive Statements SINUS BRADYCARDIA INTRAVENTRICULAR CONDUCTION DELAY [130+ ms QRS DURATION] INFERIOR MYOCARDIAL INFARCTION , PROBABLY OLD [40+ ms Q WAVE AND/OR ST/T ABNORMALITY IN II/aVF] CRITICAL TEST RESULT Compared to ECG 12/24/2023 10:27:05 Intraventricular conduction delay now present Myocardial infarct finding now present Sinus rhythm no longer present Ventricular premature complex(es) no longer present Electronically Signed On 04-14-2024 21:23:06 CDT by HUNTER MERRILL [email or web address]
--- NOTE | 2024-04-12 07:27 | PC.NURSE ---
attempted to call report to [facility] @ [phone] and there was no answer.
[2024-04-12] MEDS: HYDROmorphone 1 mg/mL INJ 1 mL IVP (07:49)
--- NOTE | 2024-04-12 08:12 | PC.NURSE ---
report called back to [facility], currently waiting on ride
== END 2024-04-12 09:47 | disposition home or self-care (01) ==
PROVIDERS: Emergency Medicine; Emergency Provider Emergency Medicine; PCP Family Medicine
DX: R00.1 Bradycardia, unspecified (principal); E87.5 Hyperkalemia; I10 Essential (primary) hypertension; F03.90 Unspecified dementia, unspecified severity, without behavioral disturbance, psychotic disturbance, mood disturbance, and anxiety
CPT/HCPCS: 71045; 80053; 83880; 84484; 85025; 93005; 96374; 96375; 99285; J1170; J2060; J2270; J2310